=== PATIENT | female | born 1960 ===

== ENCOUNTER 2020-06-14 15:45 | Outpatient (REF) | payer OTHER, SELFPAY ==
--- NOTE | 2020-06-14 15:56 | XR_ITS ---
EXAMINATION: XR ABDOMEN KUB CLINICAL INDICATION: Renal stone COMPARISON: Previous KUB April 2020 TECHNIQUE: AP view of the abdomen. FINDINGS: Evaluation for renal stone is limited due to overlying bowel gas. No definite stone is seen. There are are high attenuation foci projecting over the mid pole of the left kidney, largest measuring 5 x 8 mm questionable for possible central left renal stone. Bowel gas pattern and bony structures are unremarkable. XR/XR KUB IMPRESSION: No definite stone seen. Evaluation for renal stone is limited due to overlying bowel gas. There are several high attenuation densities projecting over the central left kidney questionable for stones, largest measuring 5 x 8 mm.
== END 2020-06-14 15:46 | disposition home or self-care (01) ==
LOC: HO.XRAY 15:45
PROVIDERS: PCP Internal Medicine; Visit Provider Urology
DX: N20.0 Calculus of kidney (principal)
CPT/HCPCS: 74018

== ENCOUNTER → 2020-06-15 13:43 | Outpatient (BNVA) | payer OTHER, SELFPAY | PROVIDERS: PCP Internal Medicine; Referring Provider Internal Medicine; Visit Provider Urology | DX: N20.0 Calculus of kidney (principal) ==

== ENCOUNTER 2020-07-06 06:05 | Day surgery (SDC) | payer OTHER, SELFPAY ==
[2020-07-01 10:24] VITALS: BMI 44.9
--- NOTE | 2020-07-06 06:10 | XR_ITS ---
EXAMINATION: XR ABDOMEN KUB CLINICAL INDICATION: Nephrolithiasis COMPARISON: 06/14/2020 TECHNIQUE: AP view of the abdomen. FINDINGS: There is a heterogeneous 8 mm calcification overlying the lower left kidney. No definite right-sided calculi identified. Bowel gas pattern is nonobstructive. No acute osseous findings are seen. XR/XR KUB IMPRESSION: Heterogeneous 8 mm calcification overlying the lower left kidney.
[2020-07-06] MEDS: Lactated Ringers 1,000 ML 100 ML IVCONT (06:30)
[2020-07-06 06:31] VITALS: BP 127/55; PULSE 63; RESP 18; TEMP 36.1; O2SAT 97
--- NOTE | 2020-07-06 07:17 | HO.ANESPROP2 ---
FORMERLY [facility] Past Medical History Medical History Arthritis Depression HTN (hypertension) Hx of renal calculi Sleep apnea Surgical History Surgical History History of carpal tunnel release Hx of cervical polypectomy Hx of cystoscopy Social History Social History Smoking Status: Unknown if ever smoked Use of substances other than those prescribed or required for medical reasons: No Advance Directives Information Provided: No Meds Allergies Allergy/AdvReac Type Severity Reaction Status Date / Time No Known Allergies Allergy Verified 06/15/20 14:34 Home Medications Medication Instructions Recorded Confirmed Type atorvastatin 20 mg tablet 20 mg PO DAILY 06/15/20 History ciprofloxacin HCl 500 mg tablet 500 mg PO BID 06/15/20 History flu vacc [id number] 6mos up(PF) ml IM 06/15/20 History glycopyrrolate 1 mg tablet mg PO 06/15/20 History lactulose 10 gram/15 mL oral 2 ml PO BEDTIME 06/15/20 History solution losartan 50 mg tablet 50 mg PO DAILY 06/15/20 History losartan 50 mg-hydrochlorothiazide 1 tab PO DAILY 06/15/20 History 12.5 mg tablet naproxen 500 mg tablet 500 mg PO Q12H PRN 06/15/20 History omeprazole 20 mg capsule,delayed 20 mg PO DAILY 06/15/20 History release phenazopyridine 100 mg tablet 100 mg PO Q8H PRN 06/15/20 History tamsulosin 0.4 mg capsule 0.4 mg PO BEDTIME 06/15/20 History tramadol 50 mg tablet 50 mg PO Q6H PRN 06/15/20 History Exam Exam Date and Time: July 06, 2020716 Height,Weight and Vital Signs: Height 5 ft Weight 104.326 kg Last Vital Signs Temp 97.0 F 07/06/20 06:31 Pulse 63 07/06/20 06:31 Resp 18 07/06/20 06:31 BP 127/55 L 07/06/20 06:31 Pulse Ox 97 07/06/20 06:31 Airway Mallampati Class: III TM Dist: <=3cm Neck ROM: Full Loose/Missing/Broken Teeth: Yes and Upper Heart: RRR Lungs: CTA Assessment and Plan Assessment Anesthesia Assessment: Anesthesia Plan Discussed and Chart Reviewed Final Anesthetic Review NPO: Yes ASA Class: II and III Final Preanesthetic Review: Meds/Allgs Chart Reviewed, Consent Obtained/Reviewed and Anes Risks/Benef Reviewed Patient Risk: Intermediate Procedure Risk: Low Anesthetic Plan Anesthetic Plan: MAC: Disposition: Standard PACU
--- NOTE | 2020-07-06 07:48 | MHC.SHP ---
Pre-Procedural Eval Section B Chief Complaint: Calculus of Kidney Details of Present Illness: Left renal stone Relevant Family History (Specify if Yes): No Relevant Social History: None Present Medications: see Short Stay Collaborative assessment Medical History: No relevant PMH History of Previous Operations: No relevant previous surgery Allergies: Allergies Allergy/AdvReac Type Severity Reaction Status Date / Time No Known Allergies Allergy Verified 06/15/20 14:34 Review of Systems Sugical H&P ROS: Negative: Constitution, Cardiovascular, Respiratory, Neurological, Psychiatric, Hem-Onc, Allergic/Immunologic, Gastrointestinal, Genitourinary, Musculoskeletal, Integumentary, Endocrine and Eyes/Ears/Nose/Throat Exam Surgical H&P Exam: Normal: HEENT, Normal: Heart, Normal: Lungs, Normal: Extremities, Normal: Abdomen, Normal: Skin and Normal: Neurological Plan Diagnosis/Plan: Unchanged Patient has been examined and remains a candidate for the planned procedure
--- NOTE | 2020-07-06 07:51 | PM.OP ---
Brief Operative Note Date of Service: 07/06/20 Pre-op diagnosis: lefty renal stone Post-op diagnosis: same Procedure: Left ESWL Surgeon: Calin Diego MD Anesthesia: MAC Estimated blood loss (mL): 0 Pathology: none sent Condition: stable Disposition: same day
--- NOTE | 2020-07-06 07:52 | W.PM.OPN ---
Operative Note Operative Note Date of Service: 07/06/20 Narrative: PreOperative Diagnosis: Left Renal stones Post Operative Diagnosis: Left Renal stones Procedure: ESWL Surgeon: Dr Calin Diego Anesthesia: mac/sedation Indications for procedure: They understand ESWL may be a staged procedure and subsequent intervention may be required based on imaging after ESWL. They also understand there is a risk of bleeding, infection, damage to adjacent organs. Procedure: After informed consent was verified the patient was brought to the operating room and placed in a supine position. Anesthesia was performed per protocol. Safety pause time-out was performed. Imaging was in the room and laterality confirmed. ESWL was performed. The 1st 500 shocks were performed at 60 hertz. These were performed with increasing power. Once maximum power was reached the rate was increased to 120 hertz. A total of 2500 shocks were given. Fluoroscopy showed stone disintegration They tolerated procedure well and was transferred to the recovery area upon completion.
[2020-07-06 08:16] VITALS: BP 130/69; PULSE 61; RESP 16; TEMP 36.1; O2SAT 99
[2020-07-06] MEDS: Acetaminophen 325 MG TABLET 650 MG PO (08:27)
[2020-07-06] MEDS: oxyCODONE HCl Immed Release 5 MG TABLET PO (08:27)
[2020-07-06 08:31] VITALS: BP 130/73; PULSE 60; RESP 18; O2SAT 97
== END 2020-07-06 09:05 | disposition home or self-care (01) ==
PROVIDERS: Urology; PCP Internal Medicine; Visit Provider Anesthesiology
PROC: (CPT 50590; principal; 2020-07-06 07:30)
DX: N20.0 Calculus of kidney (principal); Z87.442 Personal history of urinary calculi; I10 Essential (primary) hypertension; G47.30 Sleep apnea, unspecified; F32.9 Major depressive disorder, single episode, unspecified; M19.90 Unspecified osteoarthritis, unspecified site; Z79.899 Other long term (current) drug therapy
CPT/HCPCS: 50590; 74018; J1885; J2250; J3010

== ENCOUNTER 2020-07-13 08:07 | Outpatient (REF) | payer OTHER, SELFPAY ==
--- NOTE | 2020-07-13 08:36 | US_ITS ---
EXAMINATION: US RETROPERITONEAL LIMITED (RENAL ONLY) CLINICAL INFORMATION: Calculus of kidney. COMPARISON: X-ray abdomen KUB same date and 07/06/2020. CT abdomen and pelvis 04/20/2020. TECHNIQUE: Real-time imaging of the kidneys. FINDINGS: RIGHT KIDNEY: 12.6 x 3.7 x 4.1 cm (SAG x AP x TRV). The kidney is normal in size, contour, and echogenicity. Renal cortical thickness is normal. No calculi or focal parenchymal lesions. No hydronephrosis. The small right renal stone seen by CT April 2020 is not appreciated. LEFT KIDNEY: 11.5 x 5.2 x 4.8 cm (SAG x AP x TRV). The kidney is normal in size, contour, and echogenicity. Renal cortical thickness is normal. There is a 1.1 x 0.7 x 0.8 cm echogenic density with twinkle artifact and acoustic shadowing in the lower pole suggestive of a stone. There is a smaller 2 x 3 mm echogenic density with twinkle artifact in the midpole suggestive of a stone. No focal parenchymal lesions or hydronephrosis. US/US renal BI IMPRESSION: Left renal stones.
--- NOTE | 2020-07-13 08:51 | XR_ITS ---
EXAMINATION: XR ABDOMEN KUB CLINICAL INDICATION: Renal calculus COMPARISON: July 06, 2020 TECHNIQUE: AP view of the abdomen. FINDINGS: The bowel gas pattern is normal with no evidence of ileus or obstruction. There is again noted to be a calculus overlying the lower pole of the left kidney measuring approximately 1.2 x 0.8 cm in size. No definite calcifications along the expected paths of the ureters identified. There is noted to be bilateral facet arthropathy L5-S1. There is calcific tendinitis of the left greater trochanter. XR/XR KUB IMPRESSION: 1.2 x 0.8 cm calculus overlying the lower pole of the left kidney.
== END 2020-07-13 08:08 | disposition home or self-care (01) ==
LOC: HO.US 08:07
PROVIDERS: Visit Provider Urology
DX: N20.0 Calculus of kidney (principal)
CPT/HCPCS: 74018; 76775

== ENCOUNTER → 2020-07-21 16:00 | Outpatient (BNVA) | payer OTHER, SELFPAY | PROVIDERS: PCP Internal Medicine; Visit Provider Urology | DX: Z76.89 Persons encountering health services in other specified circumstances (principal) ==

== ENCOUNTER 2020-07-29 10:19 | Outpatient (REF) | payer OTHER, SELFPAY ==
--- NOTE | 2020-07-29 | MM_ITS ---
EXAMINATION: MM SCREENING DIGITAL BREAST TOMOSYNTHESIS, BILATERAL CLINICAL INFORMATION: Screening. Asymptomatic. The lifetime risk of breast cancer based on the Tyrer-Cuzick Model is 5%. COMPARISON: Mammography: 03/07/2017 TECHNIQUE: Digital breast tomosynthesis is performed in both the craniocaudal and mediolateral oblique views along with computer-aided detection (CAD). Synthesized 2D images are generated from the tomosynthesis. Additional right MLO view is provided. FINDINGS: There are scattered areas of fibroglandular density (ACR BI-RADS breast composition Category b). There are no significant masses, abnormal calcifications, or other abnormalities. The axilla and skin contours are unremarkable. No significant changes from prior studies. MM/MM tomosynthesis screening BI IMPRESSION: No mammographic evidence of malignancy. ASSESSMENT: BI-RADS 1: Negative RECOMMENDATION: Routine annual mammography screening. This patient's information was entered into a reminder system with a target due date for their next mammogram.
== END 2020-07-29 10:20 | disposition home or self-care (01) ==
LOC: HO.MAMMO 10:19
PROVIDERS: Visit Provider Internal Medicine
DX: Z12.31 Encounter for screening mammogram for malignant neoplasm of breast (principal)
CPT/HCPCS: 77063; 77067

== ENCOUNTER 2020-11-11 09:40 | Outpatient (REF) | payer OTHER, SELFPAY ==
[2020-11-11 10:54] LABS: MANUAL DIFF FLAG NO
[2020-11-11 10:59] LABS: Basophils Percent Auto 0.5 % (0-2); Eosinophils Absolute Auto 0.1 X10*3/uL (0.0-0.4); Eosinophils Percent Auto 1.3 % (0-4); Hemoglobin 12.9 g/dl (12.0-16.0); Imm Gran Abs Auto 0.02 X10*3/uL (0.00-0.03); Imm Gran Pct Auto 0.3 % (0.0-0.4); Lymphocytes Absolute Auto 2.1 X10*3/uL (1.2-4.9); Lymphocytes Percent Auto 34.2 % (20-40); Mean Corpuscular HGB Conc 32.3 g/dl (31.0-35.0); Mean Corpuscular Volume 83.9 fL (80-98); Mean Platelet Volume 11.1 fL (9.4-12.3); Monocytes Absolute Auto 0.5 X10*3/uL (0.1-1.2); Monocytes Percent Auto 8.6 % (2-11); Neutrophils Absolute Auto 3.3 X10*3/uL (2.0-8.3); Neutrophils Percent Auto 55.1 % (45-73); Platelet Count 207 X10*3/uL (160-400); Red Blood Count 4.77 X10*6/uL (4.20-5.50); Red Cell Distribution Width 13.4 % (11.0-16.0); White Blood Count 6.1 X10*3/uL (4.8-10.8)
[2020-11-11 11:30] LABS: Alanine Aminotransferase 37 U/L (0-31); Albumin Level 4.2 g/dL (3.5-5.0); Alkaline Phosphatase 67 U/L (39-117); Anion Gap 14 (12-20); Aspartate Amino Transferase 24 U/L (5-31); Bilirubin Total 0.6 mg/dL (0.0-1.0); Blood Urea Nitrogen 13 mg/dL (9-16); Calcium 8.7 mg/dL (8.4-10.2); Carbon Dioxide 28 mmol/L (22-29); Chloride 104 mmol/L (96-108); Estimated Glomerular Filt Rate > 60; Glucose Random 96 mg/dL (60-115); Potassium 4.1 mmol/L (3.3-5.1); Sodium 142 mmol/L (135-145); Total Protein 6.5 g/dL (6.5-8.0)
[2020-11-11 11:40] LABS: Thyroid Stimulating Hormone 1.21 uIU/mL (0.32-4.0)
== END 2020-11-11 09:41 | disposition home or self-care (01) ==
LOC: HO.LAB 09:40
PROVIDERS: PCP Internal Medicine; Visit Provider Internal Medicine
DX: E66.01 Morbid (severe) obesity due to excess calories (principal); E78.00 Pure hypercholesterolemia, unspecified; I10 Essential (primary) hypertension; R61 Generalized hyperhidrosis
CPT/HCPCS: 36415; 80053; 84443; 85025

== ENCOUNTER 2020-12-19 10:19 | Outpatient (REF) | payer OTHER, SELFPAY ==
--- NOTE | ~2020-12-19 | XR_ITS ---
EXAMINATION: XR KNEE, RIGHT XR KNEE, LEFT CLINICAL INFORMATION: Osteoarthritis bilateral knees. COMPARISON: Radiographs bilateral knees 12/31/2015 TECHNIQUE: Each knee is imaged in 4 views including AP projection with weightbearing. There are total of 8 views. FINDINGS: Right: There is no fracture, dislocation, destructive process. There are osteoarthritic changes greatest medial knee joint compartment with prominent narrowing on the AP weightbearing view and mild secondary genu varus. There is no erosive change or visible chondrocalcinosis. Lateral view shows small to moderate suprapatellar effusion. There is no lateralization or tilting patella. Some benign-appearing calcifications are again noted in the prepatellar soft tissue. Hoffa's fat pad is unremarkable. The deep infrapatellar recess appears preserved. Left: There is no fracture, dislocation, destructive process. There are osteoarthritic changes medial knee joint compartment with narrowing on the AP weightbearing view of slightly lesser severity than that on the right. There is mild secondary genu varus. No erosive change or visible chondrocalcinosis. No definite suprapatellar effusion. There is no lateralization or tilting patella. Hoffa's fat pad is unremarkable. The deep infrapatellar recess appears preserved. XR/XR knee LT 4V IMPRESSION: Right: Prominent narrowing medial knee joint compartment with secondary genu varus. Small to moderate suprapatellar effusion. No erosive change or chondrocalcinosis. Left: Narrowing medial knee joint compartment of lesser severity with secondary genu varus. No definite effusion.
--- NOTE | ~2020-12-19 | XR_ITS ---
EXAMINATION: XR KNEE, RIGHT XR KNEE, LEFT CLINICAL INFORMATION: Osteoarthritis bilateral knees. COMPARISON: Radiographs bilateral knees 12/31/2015 TECHNIQUE: Each knee is imaged in 4 views including AP projection with weightbearing. There are total of 8 views. FINDINGS: Right: There is no fracture, dislocation, destructive process. There are osteoarthritic changes greatest medial knee joint compartment with prominent narrowing on the AP weightbearing view and mild secondary genu varus. There is no erosive change or visible chondrocalcinosis. Lateral view shows small to moderate suprapatellar effusion. There is no lateralization or tilting patella. Some benign-appearing calcifications are again noted in the prepatellar soft tissue. Hoffa's fat pad is unremarkable. The deep infrapatellar recess appears preserved. Left: There is no fracture, dislocation, destructive process. There are osteoarthritic changes medial knee joint compartment with narrowing on the AP weightbearing view of slightly lesser severity than that on the right. There is mild secondary genu varus. No erosive change or visible chondrocalcinosis. No definite suprapatellar effusion. There is no lateralization or tilting patella. Hoffa's fat pad is unremarkable. The deep infrapatellar recess appears preserved. XR/XR knee RT 4V IMPRESSION: Right: Prominent narrowing medial knee joint compartment with secondary genu varus. Small to moderate suprapatellar effusion. No erosive change or chondrocalcinosis. Left: Narrowing medial knee joint compartment of lesser severity with secondary genu varus. No definite effusion.
--- NOTE | ~2020-12-19 | XR_ITS ---
EXAMINATION: XR ABDOMEN KUB CLINICAL INDICATION: Renal stone COMPARISON: Previous KUB June 2020, renal ultrasound June [address] April 2020 TECHNIQUE: AP view of the abdomen. FINDINGS: Evaluation for renal stone is limited due to overlying bowel gas. No stone is appreciated. There are distended loops of bowel seen in the abdomen. There is no evidence of free air. Bony structures are unremarkable. XR/XR KUB IMPRESSION: Limited evaluation for renal stone due to overlying bowel gas. No renal stone appreciated.
[2020-12-19 13:37] LABS: Folate 14.3 ng/mL (> or = 4.0); Vitamin B12 626 pg/mL (200-900)
== END 2020-12-19 10:20 | disposition home or self-care (01) ==
LOC: HO.XRAY 10:19
PROVIDERS: PCP Internal Medicine; Visit Provider Internal Medicine
DX: M17.0 Bilateral primary osteoarthritis of knee (principal); N20.0 Calculus of kidney; G90.09 Other idiopathic peripheral autonomic neuropathy; I10 Essential (primary) hypertension; R61 Generalized hyperhidrosis
CPT/HCPCS: 36415; 73564; 74018; 82607; 82746

== ENCOUNTER → 2020-12-27 07:46 | Outpatient (BNVA) | payer OTHER, SELFPAY | PROVIDERS: PCP Internal Medicine; Visit Provider Orthopaedic Surgery | DX: M17.0 Bilateral primary osteoarthritis of knee (principal) | CPT/HCPCS: 20610; J1040 ==

== ENCOUNTER 2021-01-17 13:06 | Outpatient (REF) | payer OTHER, SELFPAY ==
[2021-01-17 14:50] LABS: C Reactive Protein 0.04 mg/dL (< or = 0.50)
[2021-01-17 15:16] LABS: Erythrocyte Sedimentation Rate 7 MM/HR (0-20)
[2021-01-18 08:27] LABS: Lyme Abs Screen <0.90 index
== END 2021-01-17 13:07 | disposition home or self-care (01) ==
LOC: HO.LAB 13:06
PROVIDERS: PCP Internal Medicine; Visit Provider Psychiatry & Neurology Neurology
DX: M35.3 Polymyalgia rheumatica (principal)
CPT/HCPCS: 36415; 82550; 85652; 86140; 86617; 86618

== ENCOUNTER → 2021-05-11 11:14 | Outpatient (BNVA) | payer OTHER, SELFPAY | PROVIDERS: PCP Internal Medicine; Visit Provider Urology ==

== ENCOUNTER 2021-05-15 10:07 | Outpatient (REF) | payer OTHER, SELFPAY ==
[2021-05-15 12:12] LABS: MANUAL DIFF FLAG NO
[2021-05-15 12:30] LABS: Basophils Percent Auto 0.4 % (0-2); Eosinophils Absolute Auto 0.1 X10*3/uL (0.0-0.4); Eosinophils Percent Auto 1.2 % (0-4); Hematocrit 39.1 % (37-47); Hemoglobin 12.6 g/dl (12.0-16.0); Imm Gran Abs Auto 0.01 X10*3/uL (0.00-0.03); Imm Gran Pct Auto 0.2 % (0.0-0.4); Lymphocytes Absolute Auto 1.6 X10*3/uL (1.2-4.9); Lymphocytes Percent Auto 30.7 % (20-40); Mean Corpuscular HGB Conc 32.2 g/dl (31.0-35.0); Mean Corpuscular Hemoglobin 27.2 pg (27.0-33.0); Mean Corpuscular Volume 84.3 fL (80-98); Mean Platelet Volume 11.2 fL (9.4-12.3); Monocytes Absolute Auto 0.5 X10*3/uL (0.1-1.2); Monocytes Percent Auto 8.8 % (2-11); Neutrophils Percent Auto 58.7 % (45-73); Platelet Count 205 X10*3/uL (160-400); Red Blood Count 4.64 X10*6/uL (4.20-5.50); Red Cell Distribution Width 12.7 % (11.0-16.0); White Blood Count 5.1 X10*3/uL (4.8-10.8)
[2021-05-15 12:43] LABS: Alanine Aminotransferase 39 U/L (0-31); Albumin Level 4.1 g/dL (3.5-5.0); Alkaline Phosphatase 62 U/L (39-117); Anion Gap 11 (12-20); Aspartate Amino Transferase 28 U/L (5-31); Bilirubin Total 0.5 mg/dL (0.0-1.0); Blood Urea Nitrogen 12 mg/dL (9-16); Carbon Dioxide 26 mmol/L (22-29); Chloride 103 mmol/L (96-108); Cholesterol 120 mg/dL; Estimated Glomerular Filt Rate > 60; Glucose Random 125 mg/dL (60-115); HDL Cholesterol 35 mg/dL; LDL Cholesterol Calculated 59 mg/dl; Potassium 3.9 mmol/L (3.3-5.1); Sodium 136 mmol/L (135-145); Total Protein 6.4 g/dL (6.5-8.0); Triglycerides 131 mg/dL
== END 2021-05-15 10:08 | disposition home or self-care (01) ==
LOC: HO.LAB 10:07
PROVIDERS: Visit Provider Internal Medicine
DX: E78.00 Pure hypercholesterolemia, unspecified (principal); I10 Essential (primary) hypertension; R05 Cough
CPT/HCPCS: 36415; 80053; 80061; 85025

== ENCOUNTER 2021-08-31 08:36 | Outpatient (REF) | payer OTHER, SELFPAY | END 2021-08-31 08:37 | disposition home or self-care (01) | LOC: HO.HOSX 08:36 | PROVIDERS: Visit Provider Orthopaedic Surgery | DX: Z13.89 Encounter for screening for other disorder (principal) ==

== ENCOUNTER → 2021-11-09 10:19 | Outpatient (BNVA) | payer OTHER, SELFPAY | PROVIDERS: PCP Internal Medicine; Visit Provider Orthopaedic Surgery | DX: M17.0 Bilateral primary osteoarthritis of knee (principal) | CPT/HCPCS: 20610; J1100 ==

== ENCOUNTER 2021-12-11 10:26 | Outpatient (REF) | payer OTHER, SELFPAY ==
--- NOTE | ~2021-12-11 | US_ITS ---
EXAMINATION: US RETROPERITONEAL LIMITED (RENAL ONLY) CLINICAL INFORMATION: Calculus of kidney. COMPARISON: X-ray abdomen KUB 12/19/2020 and 07/13/2020. Renal ultrasound 07/13/2020. CT abdomen and pelvis 04/20/2020. TECHNIQUE: Real-time imaging of the kidneys. FINDINGS: RIGHT KIDNEY: 12.4 x 4.3 x 4.9 cm (SAG x AP x TRV). The kidney is normal in size, contour, and echogenicity. Renal cortical thickness is normal. No calculi or focal parenchymal lesions. No hydronephrosis. LEFT KIDNEY: 11.5 x 4.7 x 5.3 cm (SAG x AP x TRV). The kidney is normal in size, contour, and echogenicity. Renal cortical thickness is normal. There are several echogenic foci in the left kidney questionable for tiny stones. These do not demonstrate twinkle artifact or shadowing. These measure 1 to 2 mm. The previously identified 1.1 x 0.7 x 0.8 cm stone in the lower pole is no longer seen. No focal parenchymal lesions. No hydronephrosis. US/US renal BI IMPRESSION: Question tiny left renal stones. Normal right kidney.
== END 2021-12-11 10:27 | disposition home or self-care (01) ==
LOC: HO.US 10:26
PROVIDERS: Visit Provider Urology
DX: N20.0 Calculus of kidney (principal); M54.16 Radiculopathy, lumbar region
CPT/HCPCS: 76775

== ENCOUNTER → 2021-12-19 13:10 | Outpatient (BNVA) | payer OTHER, SELFPAY | PROVIDERS: PCP Internal Medicine; Visit Provider Urology | DX: Z13.89 Encounter for screening for other disorder (principal) ==

== ENCOUNTER → 2022-01-02 09:06 | Outpatient (BNVA) | payer OTHER, SELFPAY | PROVIDERS: PCP Internal Medicine; Visit Provider Nurse Practitioner Family | DX: Z13.89 Encounter for screening for other disorder (principal) ==

== ENCOUNTER 2022-03-28 07:55 | Outpatient (REF) | payer OTHER, SELFPAY ==
--- NOTE | ~2022-03-28 | MM_ITS ---
EXAMINATION: MM SCREENING DIGITAL BREAST TOMOSYNTHESIS, BILATERAL CLINICAL INFORMATION: Screening. Asymptomatic. The lifetime risk of breast cancer based on the Tyrer-Cuzick Model is 5%. COMPARISON: Mammography: 07/29/2020, 11/23/2016 TECHNIQUE: Digital breast tomosynthesis is performed in both the craniocaudal and mediolateral oblique views along with computer-aided detection (CAD). Synthesized 2D images are generated from the tomosynthesis. Additional exaggerated left CC view is provided. FINDINGS: There are scattered areas of fibroglandular density (ACR BI-RADS breast composition Category b). There are no significant masses, abnormal calcifications, or other abnormalities. Parenchymal pattern is similar to prior studies. No developing density or architectural abnormality. No significant changes. MM/MM tomosynthesis screening BI IMPRESSION: No mammographic evidence of malignancy. ASSESSMENT: BI-RADS 1: Negative RECOMMENDATION: Routine annual mammography screening. This patient's information was entered into a reminder system with a target due date for their next mammogram.
== END 2022-03-28 07:56 | disposition home or self-care (01) ==
LOC: HO.MAMMO 07:55
PROVIDERS: PCP Internal Medicine; Visit Provider Internal Medicine
DX: Z12.31 Encounter for screening mammogram for malignant neoplasm of breast (principal)
CPT/HCPCS: 77063; 77067

== ENCOUNTER 2022-03-28 08:34 | Outpatient (REF) | payer OTHER, SELFPAY ==
--- NOTE | ~2022-03-28 | US_ITS ---
EXAMINATION: US LOWER EXTREMITY VENOUS (REFLUX EXAM), BILATERAL CLINICAL INDICATION: Chronic venous insufficiency, lower extremity pain COMPARISON: None. TECHNIQUE: Color flow triplex imaging and compression Doppler was performed to evaluate both the deep and the superficial systems bilaterally. To evaluate the superficial system, the examination was performed in the upright position. Color-flow Doppler ultrasound and compression ultrasound were utilized. In addition, maneuvers were utilized to demonstrate reflux. FINDINGS: 1. DEEP VENOUS ULTRASOUND OF THE RIGHT LOWER EXTREMITY: Common Femoral Vein: Compressible, normal respiratory variation and augmented flow. Femoral Vein: Compressible, normal color flow and augmentation. Popliteal Vein: Compressible, normal augmentation. Deep Reflux: There is no evidence of reflux in the deep system in either the common femoral vein or the popliteal vein. There is no evidence of a Gonzalez's cyst. 2. SUPERFICIAL ULTRASOUND WITH DOPPLER OF RIGHT LOWER EXTREMITY: GREAT SAPHENOUS VEIN: Saphenofemoral Junction: 0.2 cm; Reflux: 0 ms Proximal Thigh: 0.4 cm; Reflux: 0 ms Mid Thigh: 0.5 cm; Reflux: 0 ms Above Knee: 0.4 cm; Reflux: 0 ms At Knee: 0.3 cm; Reflux: 0 ms Below Knee: 0.3 cm; Reflux: 3340 ms Mid Calf: 0.2 cm; Reflux: 3012 ms Ankle: 0.3 cm; Reflux: 0 ms DUPLICATED MEDIAL GREAT SAPHENOUS VEIN: Diameter: None Imaged Reflux: NA DUPLICATED LATERAL GREAT SAPHENOUS VEIN: Diameter: None Imaged Reflux: NA SMALL SAPHENOUS VEIN: Proximal: 0.5 cm; Reflux: 0 ms Distal: 0.3 cm; Reflux: 0 ms VEIN OF GIACOMINI: None Imaged. PERFORATORS: Location: None Imaged Size: NA Reflux: NA VARICOSITIES: Location: Thigh and calf Size: Less than 3 mm Reflux: None 3. DEEP VENOUS ULTRASOUND OF THE LEFT LOWER EXTREMITY: Common Femoral Vein: Compressible, normal respiratory variation and augmented flow. Femoral Vein: Compressible, normal color flow and augmentation. Popliteal Vein: Compressible, normal augmentation. Deep Reflux: There is no evidence of reflux in the deep system in either the common femoral vein or the popliteal vein. There is no evidence of a Gonzalez's cyst. 4. SUPERFICIAL ULTRASOUND WITH DOPPLER OF LEFT LOWER EXTREMITY: GREAT SAPHENOUS VEIN: Saphenofemoral Junction: 0.7 cm; Reflux: 0 ms Proximal Thigh: 0.4 cm; Reflux: 0 ms Mid Thigh: 0.3 cm; Reflux: 0 ms Above Knee: 0.3 cm; Reflux: 0 ms At Knee: 0.3 cm; Reflux: 0 ms Below Knee: 0.3 cm; Reflux: 0 ms Mid Calf: 0.2 cm; Reflux: 0 ms Ankle: 0.3 cm; Reflux: 0 ms DUPLICATED MEDIAL GREAT SAPHENOUS VEIN: Diameter: None Imaged Reflux: NA DUPLICATED LATERAL GREAT SAPHENOUS VEIN: Diameter: None Imaged Reflux: NA SMALL SAPHENOUS VEIN: Proximal: 0.2 cm; Reflux: 0 ms Distal: 0.2 cm; Reflux: 0 ms VEIN OF GIACOMINI: None Imaged. PERFORATORS: Location: None Imaged Size: NA Reflux: NA VARICOSITIES: Location: Thigh and calf Size: Less than 3 mm Reflux: None US/US venous duplex LE BI IMPRESSION: Right: Focal segmental reflux in the right great saphenous vein within the calf as described above. Left: No significant superficial venous reflux in the left lower extremity
== END 2022-03-28 08:35 | disposition home or self-care (01) ==
LOC: HO.US 08:34
PROVIDERS: Visit Provider Nurse Practitioner Family
DX: M79.605 Pain in left leg (principal); M79.604 Pain in right leg; I89.0 Lymphedema, not elsewhere classified; G57.93 Unspecified mononeuropathy of bilateral lower limbs; M79.651 Pain in right thigh
CPT/HCPCS: 93970

== ENCOUNTER 2022-05-02 06:37 | Outpatient (REF) | payer OTHER, SELFPAY | END 2022-05-02 06:38 | disposition home or self-care (01) | LOC: HO.RADIR 06:37 | PROVIDERS: Visit Provider Internal Medicine | DX: M25.561 Pain in right knee (principal); M25.562 Pain in left knee | CPT/HCPCS: 64447 ==

== ENCOUNTER 2022-05-02 09:15 | Outpatient (REF) | payer OTHER, SELFPAY ==
[2022-05-02 09:35] LABS: MANUAL DIFF FLAG NO
[2022-05-02 10:12] LABS: Basophils Percent Auto 0.5 % (0-2); Eosinophils Absolute Auto 0.1 X10*3/uL (0.0-0.4); Eosinophils Percent Auto 1.7 % (0-4); Hemoglobin 13.4 g/dl (12.0-16.0); Imm Gran Abs Auto 0.02 X10*3/uL (0.00-0.03); Imm Gran Pct Auto 0.5 % (0.0-0.4); Lymphocytes Absolute Auto 1.6 X10*3/uL (1.2-4.9); Lymphocytes Percent Auto 39.3 % (20-40); Mean Corpuscular HGB Conc 31.9 g/dl (31.0-35.0); Mean Corpuscular Volume 84.5 fL (80.0-98.0); Mean Platelet Volume 10.5 fL (9.4-12.3); Monocytes Absolute Auto 0.4 X10*3/uL (0.1-1.2); Monocytes Percent Auto 9.4 % (2-11); Neutrophils Percent Auto 48.6 % (45-73); Platelet Count 189 X10*3/uL (160-400); Red Blood Count 4.97 X10*6/uL (4.20-5.50); Red Cell Distribution Width 12.4 % (11.0-16.0); White Blood Count 4.2 X10*3/uL (4.8-10.8)
[2022-05-02 10:32] LABS: Estimated Average Glucose 120 mg/dL; Hemoglobin A1c % 5.8 %
[2022-05-02 10:45] LABS: Alanine Aminotransferase 52 U/L (0-31); Albumin Level 4.2 g/dL (3.5-5.0); Alkaline Phosphatase 92 U/L (39-117); Anion Gap 13 (12-20); Aspartate Amino Transferase 30 U/L (5-31); Bilirubin Total 0.3 mg/dL (0.0-1.0); Blood Urea Nitrogen 15 mg/dL (9-16); Calcium 9.1 mg/dL (8.4-10.2); Carbon Dioxide 28 mmol/L (22-29); Chloride 106 mmol/L (96-108); Estimated Glomerular Filt Rate > 60; Glucose Random 107 mg/dL (60-115); Potassium 4.6 mmol/L (3.3-5.1); Sodium 142 mmol/L (135-145); Total Protein 6.6 g/dL (6.5-8.0)
[2022-05-02 10:57] LABS: Thyroid Stimulating Hormone 1.19 uIU/mL (0.32-4.0)
== END 2022-05-02 09:16 | disposition home or self-care (01) ==
LOC: HO.LAB 09:15
PROVIDERS: PCP Internal Medicine; Visit Provider Internal Medicine
DX: Z00.00 Encounter for general adult medical examination without abnormal findings (principal); I10 Essential (primary) hypertension; E78.00 Pure hypercholesterolemia, unspecified; J30.89 Other allergic rhinitis; Z86.010 Personal history of colon polyps
CPT/HCPCS: 36415; 80053; 83036; 84443; 85025

== ENCOUNTER 2022-05-30 06:21 | Outpatient (REF) | payer OTHER, SELFPAY | END 2022-05-30 06:22 | disposition home or self-care (01) | LOC: CF 06:21 | PROVIDERS: Visit Provider Internal Medicine | DX: M25.562 Pain in left knee (principal); M25.561 Pain in right knee | CPT/HCPCS: 64447 ==

== ENCOUNTER 2022-06-20 13:06 | Day surgery (SDC) | payer OTHER, SELFPAY ==
[2022-06-20 13:18] VITALS: BP 125/87; PULSE 76; RESP 18; TEMP 35.9; O2SAT 96
[2022-06-20 13:30] VITALS: BMI 43.5
--- NOTE | 2022-06-20 15:02 | PC.NURSE ---
certified court interpreter for mexican throughout assessment and in OR.
--- NOTE | 2022-06-20 15:06 | P.OP_ITS ---
Operative Note Operative Note Date of Service: 06/20/22 Narrative: Peripheral Nerve Stimulation Temporary Lead Placement, Ultrasound-Guided, Saphenous Nerve, Right ? After the risks, benefits and alternatives were discussed with the patient and informed consentwas obtained, patient was placed in the supine position and padded to foster comfort. Appropriate skin and bony landmarks were identified, and pertinent vascular structures were located. The skin overlying the needle entry site was prepped and draped in sterile fashion. Ultrasound was used to identify the femoral artery, the femoral vein and the saphenous nerve. After identifying and marking the intended target along the course of the Saphenous nerve, the skin around the planned entry point and the subcutaneous tissues were injected with local anesthetic. An introducer needle and stimulating probe were assembled, inserted and advanced along the intended course of the saphenous; nerve, taking care to maintain the proper depth of insertion as the introducer was advanced under ultrasound guidance. The introducer needle was delivered to a location in proximity to the nerve taking care not to puncture the femoral artery or the vein. Multiple stimulation parameters were used to deliver stimulation to the saphenous nerve in concert with stimulating at multiple positions around the nerve. Nerve target acquisition was confirmed noting generation of sensory and mild motor effects (paresthesia, muscle tension, etc) in the medial knee, leg and ankle; corresponding to the distribution of the saphenous nerve. Various electrical parameter combinations were tested, and the lead location was adjusted (physic ally relocated under ultrasound guidance) until the patient indicated medial knee paresthesia and tension overlapping the distribution of the patient?s typical region of pain. The stimulating probe was removed from the introducer and a percutaneous lead was guided through the needle and delivered to a location in similar proximity to the nerve. Final location was verified with electrical stimulation and documented. The introducer needle was removed, and the exposed end of the percutaneous lead was attached to an external stimulator unit. Various electrical parameter combinations were again tested until the patient indicated paresthesia and muscle tension overlapping the distribution of the patient?s typical region of pain. After confirming that lead impedance was in the normal range, the external unit was detached, the needle was removed, and the lead was anchored at the skin. The lead was threaded into the connector block and electrical continuity and desired patient response was confirmed. The connector block was attached to the external stimulator unit. The site was covered with a sterile occlusive dressing. A final ultrasound image was taken to document final placement. The patient was observed for stability of vital signs and comfort.
--- NOTE | 2022-06-20 15:06 | PM.OP ---
Brief Operative Note Date of Service: 06/20/22 Pre-op diagnosis: Chronic right knee pain Post-op diagnosis: same Procedure: Temporary saphenous nerve stimulator placement, right side Implants: [employer] temporary PNS system Surgeon: Nomi Leyva MD Anesthesia: local Was an [employer] Equipment Salesperson used for this Procedure?: No Estimated blood loss (mL): 2 Pathology: none sent Condition: stable Disposition: same day
--- NOTE | 2022-06-20 15:06 | MHC.SHP ---
Pre-Procedural Eval Section A Date of Service: 06/20/22 Changes since office visit: Yes Patient answered all questions The History & Physical has been completed within 30 days and I have reviewed it.: No Section B Chief Complaint: Pain in right and left knee Relevant Family History (Specify if Yes): No Relevant Social History: None Present Medications: see Short Stay Collaborative assessment Medical History: No relevant PMH History of Previous Operations: No relevant previous surgery Allergies: Allergies Allergy/AdvReac Type Severity Reaction Status Date / Time No Known Allergies Allergy Verified 06/01/22 09:20 Review of Systems Sugical H&P ROS: Negative: Constitution, Cardiovascular and Respiratory Exam Surgical H&P Exam: Normal: HEENT, Normal: Heart and Normal: Lungs Plan Diagnosis/Plan: Unchanged I have reviewed the history and physical and performed a pertinent physical examination on my patient. No changes have occurred unless specified.
[2022-06-20 16:15] VITALS: BP 111/66; PULSE 71; RESP 18; TEMP 36.6; O2SAT 97
[2022-06-20 16:30] VITALS: BP 124/74; PULSE 71; RESP 18; TEMP 36.6; O2SAT 97
== END 2022-06-20 16:37 | disposition home or self-care (01) ==
PROVIDERS: PCP Internal Medicine; Visit Provider Internal Medicine
PROC: (CPT 64555; principal; 2022-06-20 14:45)
DX: M25.561 Pain in right knee (principal); M17.0 Bilateral primary osteoarthritis of knee; I10 Essential (primary) hypertension; F32.A Depression, unspecified; G47.30 Sleep apnea, unspecified; Z87.442 Personal history of urinary calculi
CPT/HCPCS: 64555; C1778

== ENCOUNTER 2022-08-22 12:56 | Day surgery (SDC) | payer OTHER, SELFPAY ==
[2022-08-22 13:24] VITALS: BMI 40.6
[2022-08-22 14:27] VITALS: BP 126/72; PULSE 67; RESP 16; TEMP 36.6; O2SAT 96
[2022-08-22 14:38] VITALS: RESP 16
--- NOTE | 2022-08-23 11:43 | MHC.SHP ---
Pre-Procedural Eval Section A Date of Service: 08/22/22 The patient is an INPATIENT: No Changes since office visit: Yes Patient answered all questions The History & Physical has been completed within 30 days and I have reviewed it.: No Section B Chief Complaint: Bilateral primary osteoarthritis of knee Relevant Family History (Specify if Yes): No Relevant Social History: None Present Medications: see Short Stay Collaborative assessment Medical History: No relevant PMH History of Previous Operations: No relevant previous surgery Allergies: Allergies Allergy/AdvReac Type Severity Reaction Status Date / Time No Known Allergies Allergy Verified 06/26/22 10:49 Review of Systems Sugical H&P ROS: Negative: Constitution, Cardiovascular and Respiratory Exam Surgical H&P Exam: Normal: HEENT, Normal: Heart and Normal: Lungs Plan Diagnosis/Plan: Unchanged I have reviewed the history and physical and performed a pertinent physical examination on my patient. No changes have occurred unless specified. Time Spent With Patient Time: Total time managing care of this patient today ____ minutes.
--- NOTE | 2022-08-23 11:44 | P.BOP_ITS ---
Brief Operative Note Date of Service: 08/23/22 Pre-op diagnosis: Right knee osteoarhritis, pain in knee joint Post-op diagnosis: same Procedure: Temporary right saphenous nerve stimulator placement Implants: SPR temporary peripheral nerve stimulation system Surgeon: Nomi Leyva MD Anesthesia: local Was an [employer] Attendant used for this Procedure?: No Estimated blood loss (mL): 2 Pathology: none sent Condition: stable Disposition: same day
--- NOTE | 2022-08-23 11:46 | P.OP_ITS ---
Operative Note Operative Note Date of Service: 08/22/22 Narrative: Peripheral Nerve Stimulation Temporary Lead Placement, Ultrasound-Guided, Saphenous Nerve, Right ? After the risks, benefits and alternatives were discussed with the patient and informed consentwas obtained, patient was placed in the supine position and padded to foster comfort. Appropriate skin and bony landmarks were identified, and pertinent vascular structures were located. The skin overlying the needle entry site was prepped and draped in sterile fashion. Ultrasound was used to identify the femoral artery, the femoral vein and the saphenous nerve. After identifying and marking the intended target along the course of the Saphenous nerve, the skin around the planned entry point and the subcutaneous tissues were injected with local anesthetic. An introducer needle and stimulating probe were assembled, inserted and advanced along the intended course of the saphenous; nerve, taking care to maintain the proper depth of insertion as the introducer was advanced under ultrasound guidance. The introducer needle was delivered to a location in proximity to the nerve taking care not to puncture the femoral artery or the vein. Multiple stimulation parameters were used to deliver stimulation to the saphenous nerve in concert with stimulating at multiple positions around the nerve. Nerve target acquisition was confirmed noting generation of sensory and mild motor effects (paresthesia, muscle tension, etc) in the medial knee, leg and ankle; corresponding to the distribution of the saphenous nerve. Various electrical parameter combinations were tested, and the lead location was adjusted (physic ally relocated under ultrasound guidance) until the patient indicated medial knee paresthesia and tension overlapping the distribution of the patient?s typical region of pain. The stimulating probe was removed from the introducer and a percutaneous lead was guided through the needle and delivered to a location in similar proximity to the nerve. Final location was verified with electrical stimulation and documented. The introducer needle was removed, and the exposed end of the percutaneous lead was attached to an external stimulator unit. Various electrical parameter combinations were again tested until the patient indicated paresthesia and muscle tension overlapping the distribution of the patient?s typical region of pain. After confirming that lead impedance was in the normal range, the external unit was detached, the needle was removed, and the lead was anchored at the skin. The lead was threaded into the connector block and electrical continuity and desired patient response was confirmed. The connector block was attached to the external stimulator unit. The site was covered with a sterile occlusive dressing. A final ultrasound image was taken to document final placement. The patient was observed for stability of vital signs and comfort.
== END 2022-08-22 14:46 | disposition home or self-care (01) ==
PROVIDERS: PCP Internal Medicine; Visit Provider Internal Medicine
PROC: (CPT 64555; principal; 2022-08-22 13:20)
DX: M25.561 Pain in right knee (principal); M17.11 Unilateral primary osteoarthritis, right knee; G57.93 Unspecified mononeuropathy of bilateral lower limbs; I89.0 Lymphedema, not elsewhere classified; I10 Essential (primary) hypertension; G47.30 Sleep apnea, unspecified; F32.A Depression, unspecified
CPT/HCPCS: 64555; C1778

== ENCOUNTER → 2022-08-30 10:02 | Outpatient (BNVA) | payer OTHER, SELFPAY | PROVIDERS: PCP Internal Medicine; Visit Provider Nurse Practitioner Family | DX: M17.0 Bilateral primary osteoarthritis of knee (principal) ==

== ENCOUNTER → 2022-09-04 09:27 | Outpatient (BNVA) | payer OTHER, SELFPAY | PROVIDERS: PCP Internal Medicine; Visit Provider Surgery Vascular Surgery | DX: I87.2 Venous insufficiency (chronic) (peripheral) (principal) ==

== ENCOUNTER → 2022-09-11 09:41 | Outpatient (BNVA) | payer OTHER, SELFPAY | PROVIDERS: PCP Internal Medicine; Visit Provider Nurse Practitioner Family | DX: Z79.899 Other long term (current) drug therapy (principal) ==

== ENCOUNTER → 2022-09-18 09:54 | Outpatient (BNVA) | payer OTHER, SELFPAY | PROVIDERS: PCP Internal Medicine; Visit Provider Nurse Practitioner Family | DX: Z79.899 Other long term (current) drug therapy (principal) ==

== ENCOUNTER → 2022-09-25 08:44 | Outpatient (BNVA) | payer OTHER, SELFPAY | PROVIDERS: PCP Internal Medicine; Visit Provider Anesthesiology | DX: Z13.89 Encounter for screening for other disorder (principal) ==

== ENCOUNTER → 2022-10-02 09:26 | Outpatient (BNVA) | payer OTHER, SELFPAY | PROVIDERS: PCP Internal Medicine; Visit Provider Nurse Practitioner Family | DX: Z13.89 Encounter for screening for other disorder (principal) ==

== ENCOUNTER → 2022-10-09 08:48 | Outpatient (BNVA) | payer OTHER, SELFPAY | PROVIDERS: PCP Internal Medicine; Visit Provider Anesthesiology | DX: Z13.89 Encounter for screening for other disorder (principal) ==

== ENCOUNTER → 2022-10-23 08:42 | Outpatient (BNVA) | payer OTHER, SELFPAY | PROVIDERS: PCP Internal Medicine; Visit Provider Anesthesiology | DX: Z13.89 Encounter for screening for other disorder (principal) ==

== ENCOUNTER 2022-10-23 09:11 | Outpatient (REF) | payer OTHER, SELFPAY ==
[2022-10-23 10:50] LABS: MANUAL DIFF FLAG NO
[2022-10-23 10:58] LABS: Basophils Percent Auto 0.6 % (0-2); Eosinophils Percent Auto 0.8 % (0-4); Hematocrit 42.6 % (37.0-47.0); Hemoglobin 13.7 g/dl (12.0-16.0); Imm Gran Abs Auto 0.01 X10*3/uL (0.00-0.03); Imm Gran Pct Auto 0.2 % (0.0-0.4); Lymphocytes Percent Auto 38.5 % (20-40); Mean Corpuscular HGB Conc 32.2 g/dl (31.0-35.0); Mean Corpuscular Hemoglobin 27.2 pg (27.0-33.0); Mean Corpuscular Volume 84.7 fL (80.0-98.0); Mean Platelet Volume 10.5 fL (9.4-12.3); Monocytes Absolute Auto 0.4 X10*3/uL (0.1-1.2); Monocytes Percent Auto 7.1 % (2-11); Neutrophils Absolute Auto 2.7 x10*3/uL (2.0-8.3); Neutrophils Percent Auto 52.8 % (45-73); Platelet Count 210 X10*3/uL (160-400); Red Blood Count 5.03 X10*6/uL (4.20-5.50); Red Cell Distribution Width 13.3 % (11.0-16.0); White Blood Count 5.1 X10*3/uL (4.8-10.8)
[2022-10-23 11:05] LABS: Alanine Aminotransferase 44 U/L (0-31); Albumin Level 4.4 g/dL (3.5-5.0); Alkaline Phosphatase 83 U/L (39-117); Anion Gap 12 (12-20); Aspartate Amino Transferase 27 U/L (5-31); Bilirubin Total 0.6 mg/dL (0.0-1.0); Blood Urea Nitrogen 16 mg/dL (9-16); Calcium 9.2 mg/dL (8.4-10.2); Carbon Dioxide 28 mmol/L (22-29); Chloride 105 mmol/L (96-108); Cholesterol 165 mg/dL; Estimated Glomerular Filt Rate > 60; Glucose Fasting 100 mg/dL (60-99); HDL Cholesterol 44 mg/dL; LDL Cholesterol Calculated 91 mg/dl; Potassium 4.4 mmol/L (3.3-5.1); Sodium 141 mmol/L (135-145); Total Protein 6.8 g/dL (6.5-8.0); Triglycerides 152 mg/dL
== END 2022-10-23 09:12 | disposition home or self-care (01) ==
LOC: HO.10HDL 09:11
PROVIDERS: Visit Provider Internal Medicine
DX: B35.1 Tinea unguium (principal); E78.00 Pure hypercholesterolemia, unspecified; I10 Essential (primary) hypertension
CPT/HCPCS: 36415; 80053; 80061; 85025

== ENCOUNTER → 2022-10-30 10:46 | Outpatient (BNVA) | payer OTHER, SELFPAY | PROVIDERS: PCP Internal Medicine; Visit Provider Nurse Practitioner Family | DX: Z13.89 Encounter for screening for other disorder (principal) ==

== ENCOUNTER 2022-12-10 08:46 | Outpatient (REF) | payer OTHER, SELFPAY ==
--- NOTE | ~2022-12-10 | US_ITS ---
EXAMINATION: US RETROPERITONEAL LIMITED (RENAL ONLY) CLINICAL INFORMATION: Calculus of kidney. COMPARISON: Bilateral renal ultrasound dated 12/11/2021 and 07/13/2020. KUBs dated 12/19/2020 and 07/13/2020. TECHNIQUE: Real-time imaging of the kidneys. FINDINGS: RIGHT KIDNEY: 12.2 x 5.3 x 5.8 cm (SAG x AP x TRV). The kidney is normal in size, contour, and echogenicity. Renal cortical thickness is normal. No focal parenchymal lesions or hydronephrosis. Nonobstructive 0.5 cm calculus in the upper pole. Scattered hyperechoic foci, suggesting vascular calcifications versus punctate calculi. LEFT KIDNEY: 11.3 x 4.5 x 6.1 cm (SAG x AP x TRV). The kidney is normal in size, contour, and echogenicity. Renal cortical thickness is normal. No calculi or focal parenchymal lesions. No hydronephrosis. Is scattered hyperechoic foci suggesting vascular calcifications versus punctate calculi. US/US renal BI IMPRESSION: 1. Nonobstructive 0.5 cm calculus in the upper pole of the right kidney. 2. Scattered hyperechoic foci in both kidneys suggesting vascular calcifications versus punctate calculi.
== END 2022-12-10 08:47 | disposition home or self-care (01) ==
LOC: HO.US 08:46
PROVIDERS: PCP Internal Medicine; Visit Provider Urology
DX: N20.0 Calculus of kidney (principal)
CPT/HCPCS: 76775

== ENCOUNTER 2023-04-17 09:45 | Outpatient (REF) | payer OTHER, SELFPAY | END 2023-04-17 09:46 | disposition home or self-care (01) | LOC: HO.MAMMO 09:45 | PROVIDERS: PCP Internal Medicine; Visit Provider Internal Medicine | DX: Z12.31 Encounter for screening mammogram for malignant neoplasm of breast (principal) | CPT/HCPCS: 77063; 77067 ==

== ENCOUNTER → 2023-04-17 10:15 | Outpatient (BNV) | payer OTHER, SELFPAY | PROVIDERS: PCP Internal Medicine; Visit Provider Radiology Diagnostic Radiology | DX: Z12.31 Encounter for screening mammogram for malignant neoplasm of breast (principal) | CPT/HCPCS: 77063; 77067 ==

== ENCOUNTER 2023-09-24 07:57 | Outpatient (REF) | payer OTHER, SELFPAY ==
[2023-09-24 08:20] LABS: MANUAL DIFF FLAG NO
[2023-09-24 08:38] LABS: Basophils Percent Auto 0.4 % (0-2); Eosinophils Absolute Auto 0.1 X10*3/uL (0.0-0.4); Eosinophils Percent Auto 1.4 % (0-4); Hematocrit 39.8 % (37.0-47.0); Imm Gran Abs Auto 0.01 X10*3/uL (0.00-0.03); Imm Gran Pct Auto 0.2 % (0.0-0.4); Lymphocytes Absolute Auto 1.9 X10*3/uL (1.2-4.9); Mean Corpuscular HGB Conc 32.7 g/dl (31.0-35.0); Mean Corpuscular Volume 85.8 fL (80.0-98.0); Mean Platelet Volume 10.1 fL (9.4-12.3); Monocytes Absolute Auto 0.4 X10*3/uL (0.1-1.2); Neutrophils Absolute Auto 2.6 x10*3/uL (2.0-8.3); Platelet Count 223 X10*3/uL (160-400); Red Blood Count 4.64 X10*6/uL (4.20-5.50); Red Cell Distribution Width 13.2 % (11.0-16.0)
[2023-09-24 09:15] LABS: Alanine Aminotransferase 25 U/L (0-31); Albumin Level 4.1 g/dL (3.5-5.0); Alkaline Phosphatase 73 U/L (39-117); Anion Gap 11 (12-20); Aspartate Amino Transferase 21 U/L (5-31); Bilirubin Total 0.4 mg/dL (0.0-1.0); Blood Urea Nitrogen 17 mg/dL (9-16); Calcium 9.1 mg/dL (8.4-10.2); Carbon Dioxide 27 mmol/L (22-29); Chloride 105 mmol/L (96-108); Cholesterol 146 mg/dL (<200); Estimated Glomerular Filt Rate > 60; Glucose Random 93 mg/dL (60-115); HDL Cholesterol 48 mg/dL (>40); LDL Cholesterol Calculated 80 mg/dL (<100); Potassium 4.1 mmol/L (3.3-5.1); Sodium 139 mmol/L (135-145); Total Protein 6.7 g/dL (6.5-8.0); Triglycerides 93 mg/dL (<150)
== END 2023-09-24 07:58 | disposition home or self-care (01) ==
LOC: HO.LAB 07:57
PROVIDERS: PCP Internal Medicine; Visit Provider Internal Medicine
DX: I10 Essential (primary) hypertension (principal); L84 Corns and callosities; R05.9 Cough, unspecified
CPT/HCPCS: 36415; 80053; 80061; 85025

== ENCOUNTER 2024-04-22 09:02 | Outpatient (REF) | payer OTHER, SELFPAY ==
--- NOTE | ~2024-04-22 | MM_ITS ---
EXAMINATION: MM SCREENING DIGITAL BREAST TOMOSYNTHESIS, BILATERAL CLINICAL INFORMATION: Screening. Asymptomatic. COMPARISON: Mammography: Comparison is made with available priors TECHNIQUE: Digital breast mammography with tomosynthesis is performed in both the craniocaudal and mediolateral oblique views along with computer-aided detection (CAD). FINDINGS: There are scattered areas of fibroglandular density (ACR BI-RADS breast composition Category b). There are no significant masses, abnormal calcifications, or other abnormalities. MM/MM tomosynthesis screening BI IMPRESSION: No mammographic evidence of malignancy. ASSESSMENT: BI-RADS BI-RADS 1 - Negative RECOMMENDATION: Routine annual mammography screening. 1 year F/U This examination should not preclude the clinical evaluation of a suspicious palpable abnormality. This patient's information was entered into a reminder system with a target due date for their next mammogram. Electronically signed by: Sabine Ocasio DO 05/10/2024 09:32 AM EDT
== END 2024-04-22 09:03 | disposition home or self-care (01) ==
LOC: HO.MAMMO 09:02
PROVIDERS: PCP Internal Medicine; Visit Provider Internal Medicine
DX: Z12.31 Encounter for screening mammogram for malignant neoplasm of breast (principal)
CPT/HCPCS: 77063; 77067

== ENCOUNTER → 2024-04-22 09:45 | Outpatient (BNV) | payer OTHER, SELFPAY | PROVIDERS: PCP Internal Medicine; Visit Provider Internal Medicine | DX: Z12.31 Encounter for screening mammogram for malignant neoplasm of breast (principal) | CPT/HCPCS: 77063; 77067 ==

== ENCOUNTER 2024-05-01 08:14 | Outpatient (AMB) | payer OTHER, SELFPAY ==
--- NOTE | 2024-05-01 08:27 | A.OFFVIS_ITS ---
Vital Signs 05/01/24 08:34 Height 5 ft 2 in Weight 201 lb 2 oz BMI 36.8 BP 113/62 Blood Pressure Location Lt brachial Position Sitting Pulse 86 Pulse Source Pulse Oximeter Pulse Oximetry (%) 98 Oxygen Delivery Method Room Air Intake Visit Reasons: Knee pain coming back Intake Note: Pain today 05/28 [employer] Required: Yes [employer] Teacher Language: Icelandic Accompanied by: Self / Same As Patient Allergies No Known Allergies Allergy (Verified 05/01/24 08:35) Medication List - Last Reconciled 05/01/24 by RADHA Fortune amitriptyline 25 mg PO BEDTIME atorvastatin 20 mg PO DAILY glycopyrrolate mg PO losartan-hydrochlorothiazide 100-12.5 mg 1 tab PO DAILY losartan-hydrochlorothiazide 50-12.5 mg 1 tab PO DAILY naltrexone-bupropion 8-90 mg 2 tabs PO BID HPI Comments Details: Patient presents today for follow-up for chronic right knee pain due to severe medial compartment OA. She underwent Sprint PNS trial last year and reports her pain returned about 5-6 months ago. Denies any recent trauma, injury or falls. Patient reports she recently visited her country [facility] and received gel injections there about 5 months ago with partial pain relief. Patient reports she was told her right knee was bone on bone and she is interested to discuss surgical options. Reports pain 1010. She is encouraged to follow office orthopedic provider. Denies any fever or chills, infection, weakness, radiating back pain, hip pain, bladder or bowel dysfunction or saddle anesthesia. PRIOR: Patient presents today for right saphenous nerve Sprint PNS removal. Patient reports ongoing 80-90% right knee pain relief with continuos paresthesia at 79- 83 with increased mobility overall. Patient reports improved functioning with daily activities, better sleep, better social interactions, improved sleep and better quality of life. Patient reports she will hold off on proceeding with left knee Sprint PNS as her left knee has not been bothersome at this time. The dressing was removed today. Lead insertion site looks clean, dry, intact, no pathological discharge, no bleeding, no erythema, no tenderness. Area was cleansed with Chloraprep. Lead pulled with tip intact and the area was cleansed again with Chloraprep, applied Bacitracin and covered it with gauze and tegaderm. Patient reports she is able to increase her physical activity level and trying to loose weight. She is able to walk longer and tolerate climbing stairs. Past Procedures: 10/30/22: Right saphenous nerve Sprint PNS lead removal 08/22/22: Repeat Right saphenous nerve PNS with [id number]% ongoing pain relief 06/20/22: Right saphenous nerve PNS with Sprint-70% until 06/26/22 05/30/22: Left saphenous nerve block at the adductor canal 100% pain relief for 2 days 05/02/22: Right saphenous nerve block at the adductor canal with li [id number]% pain relief for 24 hours [facility] Medical History Morbid obesity with BMI of 40.0-44.9, adult Primary osteoarthritis of knees, bilateral Arthritis Hx of renal calculi Depression Sleep apnea HTN (hypertension) Surgical History Hx of cystoscopy Hx of cervical polypectomy History of carpal tunnel release Social History Alcohol intake: never Patient Tobacco Use Status: Never used Tobacco Review of Systems Const All systems reviewed & are unremarkable except as noted in HPI and below Physical Exam Vital Signs: Last Vital Signs Pulse 86 05/01/24 08:34 BP 113/62 05/01/24 08:34 Pulse Ox 98 05/01/24 08:34 Oxygen Delivery Method Room Air 05/01/24 08:34 BMI result Body Mass Index 36.8 General: Appears afebrile. Alert and oriented. Mood and affect appropriate. Follows and participates in conversation appropriately. Respiratory effort is unlabored. No cough. No nasal discharge. Able to transition from sit to stand unassisted. Ambulates with bilaterally normal heel strike and toe off. Extrem General: Yes capillary refill normal, Yes no clubbing, cyanosis or edema and Yes no calf tenderness Right lower extremity: knee (Limited ROM due to pain.) Details: normal to inspection, tenderness Location: of the patella, of the medial joint line and of the lateral joint line and crepitus; no ecchymosis, no deformity and no unusual warmth Results Reviewed Results Reviewed: XR KNEE, RIGHT, XR KNEE, LEFT 12/19/20 FINDINGS: Right: There is no fracture, dislocation, destructive process. There are osteoarthritic changes greatest medial knee joint compartment with prominent narrowing on the AP weightbearing view and mild secondary genu varus. There is no erosive change or visible chondrocalcinosis. Lateral view shows small to moderate suprapatellar effusion. There is no lateralization or tilting patella. Some benign-appearing calcifications are again noted in the prepatellar soft tissue. Hoffa's fat pad is unremarkable. The deep infrapatellar recess appears preserved. Left: There is no fracture, dislocation, destructive process. There are osteoarthritic changes medial knee joint compartment with narrowing on the AP weightbearing view of slightly lesser severity than that on the right. There is mild secondary genu varus. No erosive change or visible chondrocalcinosis. No definite suprapatellar effusion. There is no lateralization or tilting patella. Hoffa's fat pad is unremarkable. The deep infrapatellar recess appears preserved. IMPRESSION: Right: Prominent narrowing medial knee joint compartment with secondary genu varus. Small to moderate suprapatellar effusion. No erosive change or chondrocalcinosis. Left: Narrowing medial knee joint compartment of lesser severity with secondary genu varus. No definite effusion. Assessment & Plan Assessment & Plan (1) Right knee pain: Code(s): M25.561 - Pain in right knee Category: Medical (2) Primary osteoarthritis of knees, bilateral: Code(s): M17.0 - Bilateral primary osteoarthritis of knee Category: Medical Plan Patient is over 1-1/2 year status post right saphenous Sprint PNS trial with ret urn of symptoms about 6 months ago. Right knee pain has been resistant to conservative treatments, including recent gel injection in uador. Orthopedic referral placed today to discuss surgical options. Patient reports she has been losing weight to optimize her BMI. Script provided for Celebrex and lidocaine patches. Side effects and precautions were discussed with patient. All questions and concerns have been answered and patient agreed with the treatment plan. Follow-up as needed. Orders: Orders XR knee RT 3V Today M25.561 - Pain in right knee Referrals Orthopedics Referral M17.0 - Bilateral primary osteoarthritis of knee, M25.561 - Pain in right knee Medications: New celecoxib Take it with food and full glass of water 200 mg PO BID PRN 60 caps 0RF pain 30 days M17.0 - Bilateral primary osteoarthritis of knee, M25.561 - Pain in right knee lidocaine 5% 2 patches topical DAILY 60 ea 1RF pain 30 days M17.0 - Bilateral primary osteoarthritis of knee, M25.561 - Pain in right knee, M25.562 - Pain in left knee Coding Level of Care Code Est Pt Level 4 (61140) Complex EM visit Add On G2211 Diagnoses Right knee pain M25.561 Primary osteoarthritis of knees, bilateral M17.0
[2024-05-01 08:34] VITALS: BP 113/62; PULSE 86; O2SAT 98; BMI 36.8
== END 2024-05-01 09:05 | disposition home or self-care (01) ==
PROVIDERS: PCP Internal Medicine; Visit Provider Nurse Practitioner Family
DX: M25.561 Pain in right knee (principal); M17.0 Bilateral primary osteoarthritis of knee
CPT/HCPCS: 99214

== ENCOUNTER 2024-05-01 08:14 | Outpatient (REF) | payer OTHER, SELFPAY ==
--- NOTE | ~2024-05-01 | XR_ITS ---
EXAMINATION: XR KNEE, RIGHT CLINICAL INFORMATION: There are 3 views of the right knee COMPARISON: Right knee x-ray December 2020 TECHNIQUE: There are 3 views of the right knee. FINDINGS: Medial compartment there is mild genu varus. There is severe joint space narrowing in the medial compartment resulting in [id number] appearance. There marginal osteophytes about the lateral compartment. There are marginal osteophytes about the patellofemoral compartment. There is no effusion. Some calcification anterior to the patella perhaps related to old soft tissue trauma. XR/XR knee RT 3V IMPRESSION: Advanced osteoarthritis of the right knee with severe joint space narrowing in the medial compartment. Electronically signed by: Taco Pace MD 05/07/2024 09:55 PM EDT
== END 2024-05-01 08:15 | disposition home or self-care (01) ==
LOC: HO.XRAY 08:14
PROVIDERS: PCP Internal Medicine; Visit Provider Nurse Practitioner Family
DX: M17.0 Bilateral primary osteoarthritis of knee (principal)
CPT/HCPCS: 73562

== ENCOUNTER 2024-05-11 12:12 | Outpatient (AMB) | payer OTHER, SELFPAY ==
--- NOTE | 2024-05-11 12:27 | A.OFFVIS_ITS ---
Vital Signs 05/11/24 12:29 Height 5 ft 2 in Weight 201 lb BMI 36.8 Intake Visit Reasons: OV Rt knee pain Intake Note: Sylvia is a 64 year old female who presents today for a follow up of her right knee OA. Patient reports that she has history of cortisone and gel injections with minimal relief. She was also treated with Pain management, who tried PNS stimulator, but have since referred patient to discuss surgical intervention of the right knee. Allergies No Known Allergies Allergy (Verified 05/01/24 08:35) HPI HPI OV Rt knee pain: Details: Sylvia is a 64 year old female who presents today for a follow up of her right knee OA. Patient reports that she has history of cortisone and gel injections with minimal relief. She was also treated with Pain management, who tried PNS stimulator, but have since referred patient to discuss surgical intervention of the right knee. She is active and healthy and feels she can not walk comfortably for more than a few minutes. She has to frequently stop. She feels she has tried everything but her pain is not allowing her to move on with her life. She has been taking NSAIDs for over a year. She has had gel and cortisone injections and even tried a pain stimulator. REPLACED BY [facility] Medical History Morbid obesity with BMI of 40.0-44.9, adult Primary osteoarthritis of knees, bilateral Arthritis Hx of renal calculi Depression Sleep apnea HTN (hypertension) Surgical History Hx of cystoscopy Hx of cervical polypectomy History of carpal tunnel release Social History Alcohol intake: never Patient Tobacco Use Status: Never used Tobacco Physical Exam Vital Signs: BMI result Body Mass Index 36.8 Extrem Other: 5-125 degrees of motion right knee Tenderness to palpation medial joint line. fixed varus malalignment Results Reviewed Results Reviewed: I personally reviewed relevant radiographs. Severe varus pattern osteoarthritis involving the medial compartment most predominantly. Assessment & Plan Assessment & Plan (1) Primary osteoarthritis of knees, bilateral: Code(s): M17.0 - Bilateral primary osteoarthritis of knee Category: Medical Plan: Primary osteoarthritis right knee. I had a long discussion with her regarding treatment options and she has failed conservative management. She is a good candidate for arthroplasty. She understands the procedure and is prepared for the responsibilities associated with it. I explained the procedure in detail. I discussed the risks benefits and alternatives including but not limited to the risk of pain, infection, stiffness, need for further surgery as well as potential medical complications such as blood clots, pulmonary embolism and cardiac complications. She expressed understanding. I introduced her to our nurse navigator and we will proceed forward preoperative clearance. Coding Level of Care Code Est Pt Level 4 (41185) Diagnoses Primary osteoarthritis of knees, bilateral M17.0
[2024-05-11 12:29] VITALS: BMI 36.8
== END 2024-05-11 13:22 | disposition home or self-care (01) ==
PROVIDERS: PCP Internal Medicine; Visit Provider Orthopaedic Surgery
DX: M17.0 Bilateral primary osteoarthritis of knee (principal)
CPT/HCPCS: 99214

== ENCOUNTER → 2024-05-11 12:12 | Outpatient (BNVA) | payer OTHER, SELFPAY | PROVIDERS: PCP Internal Medicine; Visit Provider Orthopaedic Surgery ==

== ENCOUNTER → 2024-08-03 10:23 | Outpatient (BNVA) | payer OTHER, SELFPAY | PROVIDERS: PCP Internal Medicine | DX: Z01.818 Encounter for other preprocedural examination (principal) ==

== ENCOUNTER → 2024-08-20 13:24 | Outpatient (BNV) | payer OTHER, SELFPAY | PROVIDERS: PCP Internal Medicine; Visit Provider Internal Medicine Cardiovascular Disease | DX: Z01.810 Encounter for preprocedural cardiovascular examination (principal) | CPT/HCPCS: 93010 ==

== ENCOUNTER 2024-09-03 08:53 | Outpatient (AMB) | payer OTHER, SELFPAY ==
--- NOTE | 2024-09-03 08:56 | MHC.OFFVIS ---
Vital Signs 09/03/24 09:02 Height 5 ft 2 in Weight 201 lb BMI 36.8 Intake Visit Reasons: Pre-Op: R TKA w/NE 09/08/24 Intake Note: Sylvia is a 64 year old female who presents today for a preoperative RT TKA on 09/08/24 NE. Pain management agreement reviewed and signed. Review Nurse Required: Yes Review Nurse Services: Review Nurse Present Review Nurse Name: Obie ID#[id number] Allergies gabapentin Allergy (Verified 09/03/24 09:12) Rash lisinopril Allergy (Verified 09/03/24 09:12) Cough Medication List - Last Reconciled 09/03/24 by Shania Linder PA-C atorvastatin 20 mg PO DAILY celecoxib mg PO BID lidocaine 5% 2 patches topical DAILY PRN losartan-hydrochlorothiazide 100-12.5 mg 1 tab PO DAILY naproxen sodium (Aleve) 440 mg PO BEDTIME PRN sertraline 50 mg PO 3XW walker Folding Front wheeled walker duration 99 days HPI Comments Details: Ms Tamayo presents to the office today for preop visit. She is scheduled for right total knee arthroplasty with Dr. Brown. She continues to have ongoing pain and difficulty with ambulation in the right knee, which is affecting her quality of life; therefore, she has elected to move forward with surgery. [facility] Medical History (Updated 08/20/24 @ 12:26 by Luisana Barnes RN) Anemia Constipation Migraine Numbness Elevated cholesterol Carpal tunnel syndrome Dyslipidemia Elevated liver enzymes Morbid obesity with BMI of 40.0-44.9, adult Primary osteoarthritis of knees, bilateral Arthritis Hx of renal calculi Depression Sleep apnea HTN (hypertension) Surgical History H/O colonoscopy H/O liposuction of abdomen Hx of cystoscopy Hx of cervical polypectomy History of carpal tunnel release Social History Are you a primary child care education coordinator to a significant other at home: No Do you presently have visiting nurse or other home services: No Alcohol intake: never Patient Tobacco Use Status: Never used Tobacco Review of Systems Const All systems reviewed & are unremarkable except as noted in HPI and below Physical Exam Vital Signs: BMI result Body Mass Index 36.8 Const General: cooperative, healthy appearing, comfortable, no acute distress, well developed and alert Orientation/consciousness: patient oriented x3 HEENT Head: Yes normal to inspection, Yes normocephalic and Yes atraumatic Eyes General: appearance normal, both eyes and all related structures Neck Neck: Yes normal visual inspection and Yes no lymphadenopathy Resp Effort & Inspection: normal respiratory effort and able to speak in complete sentences Cardio Rate: regular rate Peripheral pulses: Peripheral pulses 2+ throughout GI Inspection: Yes normal to inspection Palpation (GI): Soft to palpation Skin General skin exam: no rashes or lesions noted Neuro General: patient oriented x3 Extrem Other: Right knee skin intact, no open wounds or abrasions. 5-125 degrees of motion right knee Tenderness to palpation medial joint line. fixed varus malalignment Psych Appearance: grossly normal Mental Status: mental status grossly normal Results Reviewed Results Reviewed: Xrays were obtained in the office today and personally reviewed by me of the right knee for surgical planning Assessment & Plan Assessment & Plan (1) Osteoarthritis of right knee: Code(s): M17.11 - Unilateral primary osteoarthritis, right knee Category: Medical Plan: I discussed in detail the procedure and what to expect pre and post operatively. We discussed the risks, benefits and alternatives to the surgery as well as the rehabilitation course. The risks; which include, but are not limited to infection, bleeding, nerve injury, ongoing pain, swelling, and stiffness, perioperative risk of injury to bones and soft tissues, and blood clots. I?ve answered all questions and with their understanding they have consented to move forward with Right total knee arthroplasty with Dr. Brown -ASA post op -PT at [facility] core-order placed -Home with VNA Orders: Orders XR knee RT 3V Today M17.11 - Unilateral primary osteoarthritis, right knee XR knee LT 1V Today M25.562 - Pain in left knee PT Evaluation and Treatment Today Z96.651 - Presence of right artificial knee joint Coding Level of Care Code Est Pt Level 3 (39245) Complex EM visit Add On G2211 Diagnoses Osteoarthritis of right knee M17.11
[2024-09-03 09:02] VITALS: BMI 36.8
== END 2024-09-03 09:43 | disposition home or self-care (01) ==
PROVIDERS: PCP Internal Medicine; Visit Provider Physician Assistant
DX: M17.11 Unilateral primary osteoarthritis, right knee (principal)
CPT/HCPCS: 99213

== ENCOUNTER 2024-09-03 11:27 | Outpatient (REF) | payer OTHER, SELFPAY ==
--- NOTE | ~2024-09-03 | XR_ITS ---
EXAMINATION: XR KNEE, LEFT CLINICAL INFORMATION: M25.562 - Pain in left knee COMPARISON: X-ray dated January 15, 2021. TECHNIQUE: Single AP view of the both knees.. FINDINGS: Joint space narrowing involving the medial compartments of the knees. No acute cortical disruption or gross malalignment. No lytic or blastic lesions. XR/XR knee LT 1V IMPRESSION: Medial compartment osteoarthrosis, both kidneys. Electronically signed by: Jones Garcia MD 09/04/2024 10:11 AM [facility]
--- NOTE | ~2024-09-03 | XR_ITS ---
EXAMINATION: XR KNEE, RIGHT CLINICAL INFORMATION: M17.11 - Unilateral primary osteoarthritis, right knee COMPARISON: May 01, 2024. TECHNIQUE: Two views of the right knee. FINDINGS: Joint space narrowing involving the medial compartment. Posterior marginal osteophyte formation in the superior and inferior patella. Suprapatellar bursa joint effusion, large volume. Well-corticated calcifications in the prepatellar soft tissues. No acute cortical disruption or malalignment. XR/XR knee RT 3V IMPRESSION: Medial compartment osteoarthrosis. Large volume effusion, suprapatellar bursa. Probable prior trauma, prepatellar soft tissues. Electronically signed by: Jones Garcia MD 09/04/2024 10:12 AM [facility]
== END 2024-09-03 11:28 | disposition home or self-care (01) ==
LOC: HO.HOSX 11:27
PROVIDERS: Visit Provider Physician Assistant
DX: M17.11 Unilateral primary osteoarthritis, right knee (principal); M25.562 Pain in left knee
CPT/HCPCS: 73560; 73562

== ENCOUNTER 2024-09-08 07:17 | Day surgery (SDC) | payer OTHER, SELFPAY ==
--- NOTE | 2024-08-20 | ECG_ITS ---
Test Reason : pre op Blood Pressure : / mmHG Vent. Rate : 081 BPM Atrial Rate : 081 BPM P-R Int : 144 ms QRS Dur : 082 ms QT Int : 408 ms P-R-T Axes : 053 033 035 degrees QTc Int : 473 ms Normal sinus rhythm Normal ECG No previous ECGs available Referred By: Agatha Barahona Electronically Signed By:ARIANE MEJIA MD
[2024-08-20 12:43] VITALS: BP 120/74; PULSE 73; RESP 18; O2SAT 95; BMI 39.1
--- NOTE | 2024-08-20 13:09 | HO.ANESPROP2 ---
Documented by User: Agatha Barahona NP 09/07/24 13:05 HPI - Anesthesia Eval Consult details Narrative: 64yo F for Right Knee Replacement Total, 09/08/23 No recent illness No CP/SOB with activity limited by pain JONH: Unable to tolerate years ago PMFSH Active Problems Active Problems: All Active Problems Osteoarthritis of right knee (Acute) Right knee pain (Acute) Lymphedema (Acute) Varicose veins of right lower extremity with inflammation (Acute) Bilateral knee pain (Acute) Venous insufficiency of both lower extremities (Acute) Lymphedema of both lower extremities (Acute) Neuropathy involving both lower extremities (Acute) Bilateral lower extremity pain (Acute) Bilateral calf pain (Acute) Lumbar radiculopathy (Acute) Nephrolithiasis (Acute) Staghorn calculus (Acute) Primary osteoarthritis of knees, bilateral (Acute) Past Medical History Medical History Anemia Constipation Migraine Numbness Elevated cholesterol Carpal tunnel syndrome Dyslipidemia Elevated liver enzymes Morbid obesity with BMI of 40.0-44.9, adult Primary osteoarthritis of knees, bilateral Arthritis Hx of renal calculi Depression Sleep apnea HTN (hypertension) Family History Family history of problems with anesthesia: No Surgical History Surgical History H/O colonoscopy H/O liposuction of abdomen Hx of cystoscopy Hx of cervical polypectomy History of carpal tunnel release History of Problems with Anesthesia: No Social History Social History Are you a primary resident care manager rn to a significant other at home: No Do you presently have visiting nurse or other home services: No Alcohol intake: never Patient Tobacco Use Status: Never used Tobacco Use of substances other than those prescribed or required for medical reasons: No Advance Directives: No Advance Directives Information Provided: Yes Advance Directives on File: No Recently lost weight without trying: No Eating poorly because of decreased appetite: No Nutrition Risks: No Nutritional Risk Patient : No : No Poor oral hygiene: Yes (crown, partial upper) Meds Allergies Allergy/AdvReac Type Severity Reaction Status Date / Time gabapentin Allergy Rash Verified 09/03/24 09:12 lisinopril Allergy Cough Verified 09/03/24 09:12 Home Medications ?Medication ?Instructions ?Recorded ?Confirmed ?Last Taken ?Type atorvastatin 20 mg tablet 20 mg PO DAILY 06/15/20 09/03/24 09/07/24 History losartan 100 1 tab PO DAILY 05/01/24 09/03/24 09/07/24 History mg-hydrochlorothiazide 12.5 mg tablet naproxen sodium 220 mg capsule 440 mg PO BEDTIME PRN Pain 08/20/24 09/03/24 08/24/24 History (Aleve) sertraline 50 mg tablet 50 mg PO 3XW 08/20/24 09/03/24 09/07/24 History celecoxib 200 mg capsule mg PO BID 09/03/24 09/03/24 08/24/24 History Exam Height,Weight and Vital Signs: Height 5 ft 1 in Weight 93.894 kg Last Vital Signs Pulse 73 08/20/24 12:43 Resp 18 08/20/24 12:43 BP 120/74 08/20/24 12:43 Pulse Ox 95 08/20/24 12:43 O2 Del Method Room Air 08/20/24 12:43 Pertinent Lab Results Pertinent Lab Results: Lab Results 08/20/24 08/25/24 09/03/24 Range/Units 12:05 11:28 10:10 WBC 5.0 (4.8-10.8) X10*3/uL RBC 5.02 (4.20-5.50) X10*6/uL Hgb 13.9 (12.0-16.0) g/dl Hct 42.7 (37.0-47.0) % MCV 85.1 (80.0-98.0) fL MCH 27.7 (27.0-33.0) pg MCHC 32.6 (31.0-35.0) g/dl RDW 12.5 (11.0-16.0) % Plt Count 230 (160-400) X10*3/uL MPV 10.5 (9.4-12.3) fL Absolute Nucleated RBC 0.000 (0.0-0.012) X10*3/uL Nucleated RBC % (auto) 0.0 (0.0-0.2) /100WBC Sodium 140 (135-145) mmol/L Potassium 4.1 (3.3-5.1) mmol/L Chloride 106 (96-108) mmol/L Carbon Dioxide 28 (22-29) mmol/L Anion Gap 10 L (12-20) BUN 16 (9-16) mg/dL Creatinine 0.71 (0.5-1.4) mg/dL Estim Creat Clear Calc 85.9 Estimated GFR > 60 Random Glucose 102 (60-115) mg/dL Calcium 9.3 (8.4-10.2) mg/dL Nasal Screen MRSA (PCR) NEGATIVE (Negative) Nasal S. aureus Screen NEGATIVE (Negative) Nasal MRSA/S.aureus Interp SEE NOTE Blood Type O Positive Antibody Screen NEGATIVE Narrative Narrative: EKG 08/2024 Vent. Rate : 081 BPM Atrial Rate : 081 BPM P-R Int : 144 ms QRS Dur : 082 ms QT Int : 408 ms P-R-T Axes : 053 033 035 degrees QTc Int : 473 ms Normal sinus rhythm Normal ECG No previous ECGs available Airway Mallampati Class: III (small mouth opening) TM Dist: >3cm (short neck) Loose/Missing/Broken Teeth: Yes (molars missing) and No (#8&9 crowned, ) Heart: RRR Lungs: CTAB Assessment and Plan Assessment Anesthesia Assessment: Anesthesia Plan Discussed and PAT Visit Final Anesthetic Review Family History of Problems with Anesthesia: No History of Problems with Anesthesia: No Documented by User: Diann Nicole MD 09/08/24 08:57 [facility] Past Medical History Medical History Anemia Constipation Migraine Numbness Elevated cholesterol Carpal tunnel syndrome Dyslipidemia Elevated liver enzymes Morbid obesity with BMI of 40.0-44.9, adult Primary osteoarthritis of knees, bilateral Arthritis Hx of renal calculi Depression Sleep apnea HTN (hypertension) Surgical History Surgical History H/O colonoscopy H/O liposuction of abdomen Hx of cystoscopy Hx of cervical polypectomy History of carpal tunnel release Social History Social History Are you a primary resident care manager rn to a significant other at home: No Do you presently have visiting nurse or other home services: No Alcohol intake: never Patient Tobacco Use Status: Never used Tobacco Use of substances other than those prescribed or required for medical reasons: No Advance Directives: No Advance Directives Information Provided: Yes Advance Directives on File: No Recently lost weight without trying: No Eating poorly because of decreased appetite: No Nutrition Risks: No Nutritional Risk Patient : No : No Poor oral hygiene: Yes (crown, partial upper) Meds Allergies Allergy/AdvReac Type Severity Reaction Status Date / Time gabapentin Allergy Rash Verified 09/03/24 09:12 lisinopril Allergy Cough Verified 09/03/24 09:12 Home Medications ?Medication ?Instructions ?Recorded ?Confirmed ?Last Taken ?Type atorvastatin 20 mg tablet 20 mg PO DAILY 06/15/20 09/03/24 09/07/24 History losartan 100 1 tab PO DAILY 05/01/24 09/03/24 09/07/24 History mg-hydrochlorothiazide 12.5 mg tablet naproxen sodium 220 mg capsule 440 mg PO BEDTIME PRN Pain 08/20/24 09/03/24 08/24/24 History (Aleve) sertraline 50 mg tablet 50 mg PO 3XW 08/20/24 09/03/24 09/07/24 History celecoxib 200 mg capsule mg PO BID 09/03/24 09/03/24 08/24/24 History Assessment and Plan Final Anesthetic Review NPO: Yes ASA Class: III Final Preanesthetic Review: No Changes in Pt Med Stat, Meds/Allgs Chart Reviewed, Consent Obtained/Reviewed and Anes Risks/Benef Reviewed Patient Risk: Intermediate Procedure Risk: Intermediate Anesthetic Plan Anesthetic Plan: Spinal and Regional Block Disposition: Standard PACU
[2024-08-20 16:34] LABS: MRSA Nasal PCR NEGATIVE (Negative); SA Nasal PCR NEGATIVE (Negative)
[2024-08-25 11:57] LABS: Hematocrit 42.7 % (37.0-47.0); Hemoglobin 13.9 g/dl (12.0-16.0); Mean Corpuscular HGB Conc 32.6 g/dl (31.0-35.0); Mean Corpuscular Hemoglobin 27.7 pg (27.0-33.0); Mean Corpuscular Volume 85.1 fL (80.0-98.0); Mean Platelet Volume 10.5 fL (9.4-12.3); Platelet Count 230 X10*3/uL (160-400); Red Blood Count 5.02 X10*6/uL (4.20-5.50); Red Cell Distribution Width 12.5 % (11.0-16.0)
[2024-08-25 12:39] LABS: Anion Gap 10 (12-20); Blood Urea Nitrogen 16 mg/dL (9-16); Calcium 9.3 mg/dL (8.4-10.2); Carbon Dioxide 28 mmol/L (22-29); Chloride 106 mmol/L (96-108); Creatinine Clr Calc Pharmacy 85.9; Estimated Glomerular Filt Rate > 60; Glucose Random 102 mg/dL (60-115); Potassium 4.1 mmol/L (3.3-5.1); Sodium 140 mmol/L (135-145)
[2024-09-08] VITALS (9 sets, daily range): BP systolic 97–150; BP diastolic 55–80; PULSE 60–87; RESP 16–18; TEMP 36–36.7; O2SAT 94–100; BMI 39.5
--- NOTE | ~2024-09-08 | XR_ITS ---
EXAMINATION: XR KNEE, RIGHT CLINICAL INFORMATION: rt tka COMPARISON: Right knee 09/03/2024 TECHNIQUE: Two views of the right knee. FINDINGS: There is a total right knee arthroplasty with prosthetic components in satisfactory alignment. There are immediate postoperative changes visualized. The soft tissues are normal. XR/XR knee RT 2V IMPRESSION: There is a total right knee arthroplasty with prosthetic components in satisfactory alignment. There are immediate postop changes visualized. Electronically signed by: Chris Mahan MD 09/08/2024 01:12 PM [facility]
--- NOTE | 2024-09-08 07:30 | MHC.SHP ---
Pre-Procedural Eval Section A - 24 Hr Update-Section A only Date of Service: 09/08/24 The patient is an INPATIENT: No Changes since office visit: No Cold of Flu in the past 2 weeks, No New Medical Problems, No Changes in Medication and No Patient answered all questions The patient has been examined within 24 hours of the surgical procedure. The History & Physical has been completed within 30 days and I have reviewed it.: Yes Section B - Complete if H&P > 30 days Chief Complaint: Unilateral primary osteoarthritis, right knee Allergies: Allergies Allergy/AdvReac Type Severity Reaction Status Date / Time gabapentin Allergy Rash Verified 09/03/24 09:12 lisinopril Allergy Cough Verified 09/03/24 09:12 Plan I have reviewed the history and physical and performed a pertinent physical examination on my patient. No changes have occurred unless specified. Time Spent With Patient Time: Total time managing care of this patient today ____ minutes.
[2024-09-08] MEDS: Lactated Ringers 1,000 ML 100 ML IVCONT ×2 (07:53→13:51)
[2024-09-08 08:25] LABS: Hematocrit 39.9 % (37.0-47.0); Hemoglobin 13.1 g/dl (12.0-16.0)
--- NOTE | 2024-09-08 12:11 | W.PM.OPN ---
Operative Note Operative Note Date of Service: 09/08/24 Narrative: Date of Service: 09/08/24 Pre-op diagnosis: Right knee OA Post-op diagnosis: same Procedure: Right TKA Implants: Stout Triathlon press fit cruciate retaining Surgeon: Ar Brown MD Anesthesia: regional and spinal Was an Rn Case Management used for this Procedure?: Yes Rn Case Management: Shania Linder Estimated blood loss (mL): 50 Tourniquet time (min): 55 IV fluids (mL): 1,000 Pathology: other Condition: stable Disposition: PACU Procedure in detail: The patient was brought to the operating room and prepped and draped in standard sterile fashion. A time-out was called to identify proper site proper procedure proper surgeon and IV antibiotics were administered. 1 g of IV tranexamic acid was administered. I began by making a midline incision to the retinaculum and performed a medial parapatellar arthrotomy. The patella was translated laterally and the knee was flexed up.There was medial comaprtment eburnation. I performed a small medial peel and resected the infrapatellar fat pad. [place]'s line was then used to drill my intramedullary femoral guide and my distal femur cut of 10 mm was made in 5 degrees of valgus while protecting the soft tissues. I then measured a #3 femur and placed my cutting guide and made my anterior posterior and chamfer cuts protecting the soft tissues at all times. Once I was satisfied with my cuts I turned my attention to the tibia. I removed the meniscus medially and laterally and , using an external cutting guide, in line with the tibial crest and the third ray, I made my distal tibial cut in 3 deg slope of while protecting the PCL the posterior soft tissues at all times. An extension block was used to confirm appropriate amount of bony resection. I then sized a #3 tibia and once I was satisfied that there was complete tibial coverage I placed my trial and with the trial femur in place took the knee through range of motion. I was satisfied with the extension and flexion as well as the stability and balance at 0, 30 and 90 degrees. I then turned my attention to the patella where I removed 1 cm from the undersurface of the patella and then trialed a 32a patellar button. Again the knee was taken through range of motion I was satisfied with the tracking. I then returned to the femur and drilled my femoral lug holes and prepared the tibia. A femoral bone plug was placed and the knee was irrigated copiously. I then press fit the patella, tibia and femur in standard fashion. I trialed different inserts until I selected a # 9cr insert. The final insert was placed and a irrigation followed by local TXA was performed. A Werewolf cautery wand was used to maintain hemostasis over the capsule and meniscal beds, the gutters and peripatellar soft tissues. The knee was then closed with a running Quill suture, a 3 0 Vicryl and douglas on the skin. Patient was then placed in sterile dressing and brought to recovery room in stable condition there were no known complications.
[2024-09-08 13:51] LABS: Estimated Glomerular Filt Rate > 60
--- NOTE | 2024-09-08 13:59 | PM.IMCN ---
History of Present Illness Data of Consult Service Date: 09/08/24 Primary Care Provider: Mayi Crawford MD [facility] Reason for consult: TKA Right A 64 years old lady with hx of chronic lymphedema, HTN, HLD and neuropathy admitted for elective right TKA. No chest pain, palpitations, SOB, nausea, vomiting, diarrhea or urinary symptoms. surgery went well, pain under fair control. chronic lymphedema with no significant change while inpatient. Review of Systems Review of Systems: Yes all other systems are reviewed and are negative [facility] Medical History Anemia Constipation Migraine Numbness Elevated cholesterol Carpal tunnel syndrome Dyslipidemia Elevated liver enzymes Morbid obesity with BMI of 40.0-44.9, adult Primary osteoarthritis of knees, bilateral Arthritis Hx of renal calculi Depression Sleep apnea HTN (hypertension) Surgical History H/O colonoscopy H/O liposuction of abdomen Hx of cystoscopy Hx of cervical polypectomy History of carpal tunnel release Social History Household Members: Spouse and Children Housing: House Are you a primary director career services to a significant other at home: No Do you presently have visiting nurse or other home services: No Alcohol intake: never Patient Tobacco Use Status: Never used Tobacco Use of substances other than those prescribed or required for medical reasons: No Have you been hit, kicked, punched, or otherwise hurt by someone within the past year? If so, by whom?: No Do you feel safe in your current relationship?: Yes Is there a partner from a previous relationship who is making you feel unsafe now?: No Are you made to feel afraid or neglected: No Advance Directives: No Advance Directives Information Provided: Yes Advance Directives on File: No Recently lost weight without trying: No Eating poorly because of decreased appetite: No Nutrition Risks: No Nutritional Risk Patient : No : No Poor oral hygiene: Yes (crown, partial upper) Meds Allergies Allergy/AdvReac Type Severity Reaction Status Date / Time gabapentin Allergy Rash Verified 09/03/24 09:12 lisinopril Allergy Cough Verified 09/03/24 09:12 Active Medications: Current Medications Acetaminophen (Acetaminophen 325 Mg Tablet) 650 mg PO Q6H PRN PRN Reason: Pain, Mild 1-3,fever,headache Celecoxib (Celecoxib 200 Mg Capsule) 200 mg PO BID [facility] Enoxaparin Sodium (Enoxaparin Sodium 40 Mg/0.4 Ml Syringe) 40 mg SUBCUT Q24H [facility] Hydromorphone HCl (Hydromorphone Hcl 0.5 Mg/0.5 Ml Syringe) 0.25 mg IVPUSH Q4H PRN; Protocol PRN Reason: Pain, Severe (Pain Scale 7-10) Lactated Ringer's (Lr) 1,000 mls @ 100 mls/hr IVCONT .Q10H KALLIE Stop: 09/09/24 08:00 Last Admin: 09/08/24 13:51 Dose: 100 mls/hr Cefazolin Sodium/Dextrose (Ancef) 2 gm in 50 mls @ 100 mls/hr IV POSTOP@1700 ONE Stop: 09/08/24 17:29 Ondansetron HCl (Ondansetron Hcl 4 Mg/2 Ml Vial) 4 mg IVPUSH Q8H PRN PRN Reason: Nausea and Vomiting Oxycodone HCl (Oxycodone Hcl Immed Release 5 Mg Tablet) 5 mg PO Q4H PRN PRN Reason: Pain, Moderate(Pain Scale 4-6) Oxycodone HCl (Oxycodone Hcl Er 10 Mg Tab.Er.12h) 10 mg PO BID [facility] Senna (Sennosides 8.6 Mg Tablet) 17.2 mg PO BEDTIME [facility] Sertraline HCl (Sertraline Hcl 50 Mg Tablet) 50 mg PO 3XW [facility] Sodium Chloride (0.9 % Sodium Chloride Flush 3 Ml Syringe) 3 ml IVFLUSH QSHIFT [facility] Home Medications ?Medication ?Instructions ?Recorded ?Confirmed ?Last Taken ?Type atorvastatin 20 mg tablet 20 mg PO DAILY 06/15/20 09/03/24 09/07/24 History losartan 100 1 tab PO DAILY 05/01/24 09/03/24 09/07/24 History mg-hydrochlorothiazide 12.5 mg tablet naproxen sodium 220 mg capsule 440 mg PO BEDTIME PRN Pain 08/20/24 09/03/24 08/24/24 History (Aleve) sertraline 50 mg tablet 50 mg PO 3XW 0109/03/24 09/07/24 History celecoxib 200 mg capsule 200 mg PO BID PRN Pain 09/03/24 09/03/24 08/24/24 History amitriptyline 25 mg tablet 25 mg PO DAILY 09/08/24 Unknown History Physical Exam Vital Signs and Narrative: Vital Signs: Last Vital Signs Temp 98.0 F 09/08/24 13:15 Pulse 61 09/08/24 13:15 Resp 18 09/08/24 13:15 BP 97/55 L 09/08/24 13:15 Pulse Ox 95 09/08/24 13:15 O2 Del Method Room Air 09/08/24 13:15 O2 Flow Rate 3 09/08/24 12:48 BMI result Body Mass Index 39.5 Const: Other: Constitutional : interactive, not in distress Cardiovascular : no JVP, trace chronic lower extremity edema Respiratory : bilateral chest movement, not in resp distress Gastrointestinal: soft, lax, Non tender Skin : Warm, Dry extremities: Rt knee in dressing Neurological : Alert & oriented , No focal deficit Results Labs 09/08/24 08:08 09/08/24 13:26 Labs: Laboratory Results - last 24 hr 09/08/24 13:26 Estim Creat Clear Calc 91.0 Estimated GFR > 60 Imaging Radiologist's Impressions: Impressions Knee X-Ray 09/08/24 12:08 IMPRESSION: There is a total right knee arthroplasty with prosthetic components in satisfactory alignment. There are immediate postop changes visualized. Electronically signed by: Chris Mhaan MD 09/08/2024 01:[address] [facility] Assessment and Plan (1) Osteoarthritis of right knee: Status: Acute Plan A 64 years old lady for elective right TKA. TKA orthopedic team follow pain management PT eval chronic Lymphedema stable leg elevation apply compresion stocking as tolerated Neuropathy Amitryptilline HLD Statin HTN Hold BP meds Thank you for the consult will follow with you as needed. sign off for now.
--- NOTE | 2024-09-08 14:10 | PM.OP ---
Brief Operative Note Date of Service: 09/08/24 Pre-op diagnosis: Right hip OA Post-op diagnosis: same Procedure: Right PINA Implants: Barbara Trident2 multi hole 52 Accolade2 #[id number] with +2.5/ 36 ceramic Surgeon: Ar Brown MD Anesthesia: GETA and local Was an Dimension Stone Quarry Supervisor used for this Procedure?: No Dimension Stone Quarry Supervisor: Shania Linder Estimated blood loss (mL): 250 IV fluids (mL): 1,000 Pathology: other Condition: stable Disposition: PACU
--- NOTE | 2024-09-08 14:49 | P.DS_ITS ---
DS: Providers Provider Date of Service: 09/10/24 Date of discharge: 09/10/24 Primary care physician: Mayi Crawford MD Consults: 09/08/24 13:15 Consult to Hospitalist Routine Comment: Consulting Provider: [facility] Hospitalists Reason For Exam: medical managmenet DS: Diagnosis Discharge Diagnosis (1) Osteoarthritis of right knee: Status: Acute DS: Summary Hospital Course Hospital Course: The patient underwent a successful right total knee arthroplasty, they were transferred to PACU and then to the floor to recover. During their stay, their vitals were stable, afebrile at 97.4. Labs were unremarkable, H/H 11.7/35.5. POD 1 they were started on Aspirin 325mg po bid for DVT ppx, they also received Physical Therapy services twice a day. Prior to discharge, their dressing was clean dry and intact, and the plan was to be discharged home with VNA services. Time Attestation Discharge Coordination Time (in mins): 30 Quality: Safe Use of Opioids Does Pt have an Active Cancer Diagnosis on the Problem List?: No Quality: Stroke Does the patient have a stroke diagnosis?: No Physical Exam Vital Signs: Vital Signs: Last Vital Signs Temp 98.0 F 09/08/24 13:15 Pulse 61 09/08/24 13:15 Resp 18 09/08/24 13:15 BP 97/55 L 09/08/24 13:15 Pulse Ox 95 09/08/24 13:15 O2 Del Method Room Air 09/08/24 13:15 O2 Flow Rate 3 09/08/24 12:48 BMI result Body Mass Index 39.5 Const: General: cooperative, healthy appearing and no acute distress Resp: Effort & Inspection: normal respiratory effort and able to speak in complete sentences Cardio: Rate: regular rate Peripheral pulses: Peripheral pulses 2+ throughout GI: Palpation (GI): Soft to palpation Skin: Lesions: no lesions Rashes: no rashes Extrem: Other: right knee dressing is c/d/i. Able to dorsi/plantar flex. Calf is supple and nontender. Sensation intact. Pedal pulse intact. DS: Data Data Completed and Pending Pending studies at discharge: Pending at discharge 09/08/24 11:14 Surgical [PTH] Routine Labs on day of discharge: Laboratory Results - last 24 hr 09/08/24 09/08/24 08:08 13:26 Hgb 13.1 Hct 39.9 Creatinine 0.67 Estim Creat Clear Calc 91.0 Estimated GFR > 60 Discharge Plan Discharge Patient Disposition: Home Health Service Referrals: Shania Linder PA-C [Physician Flash Welding Machine Operator] - 09/24/24 9:30 am Discharge Medications: New enoxaparin 40 mg/0.4 mL Syringe 40 mg subcut Q24H 42 Days Qty: 16.8 0RF acetaminophen 325 mg Tablet 650 mg PO Q6H PRN (Reason: Pain, Mild 1-3,Fever,Headache) 30 Days Qty: 240 0RF celecoxib 200 mg Capsule 200 mg PO BID 30 Days Qty: 60 0RF oxycodone 10 mg tablet 10 mg PO Q4H PRN (Reason: Pain, Moderate(Pain Scale 4-6)) 7 Days Qty: 42 0RF Rx Instructions: Partial Fill upon patient request. sennosides [Senna Lax] 8.6 mg Tablet 17.2 mg PO BEDTIME 30 Days Qty: 60 0RF Continued (DME) walker Misc See Rx Instructions .MEDSUPPLY Qty: 1 0RF Rx Instructions: Folding Front wheeled walker duration 99 days amitriptyline 25 mg tablet 25 mg PO BEDTIME atorvastatin 20 mg tablet 20 mg PO DAILY losartan-hydrochlorothiazide 100-12.5 mg tablet 1 tab PO DAILY Discharge Orders: Discharge Order (Routine); Ordered 09/10/24 Ordered By: Isabela Gross Diet: Advance to usual diet Activity on Discharge: Use cane or walker Activity Restrictions/Additional Instructions: Physical Therapy for ROM 0-120, quad strength, gait training. Use walker for ambulation Limit stair climbing, No shower, No tub bath, No driving Continue anticoagulant x 6 weeks Keep Aquacel dressing clean, dry and intact. Follow up with orthopedics in 2 weeks Print Language: Paraguayan
--- NOTE | 2024-09-08 14:50 | P.F2F_ITS ---
Service Date Service Date: 09/08/24 Encounter Date of encounter: 09/09/24 Reasons for Services Signs and symptoms assessed: Pt. is considered homebound due to recent surgery. Unable to drive, poor balance, poor gait mechanics. s/p RTKA. Reason for physical therapy: home safety and mobility, therapeutic exercises, restore joint function, gait/transfer training and ADL training Homebound: Leaving the home is medically contraindicated at this time without the asist of a device and/or another person due th the listed conditions above and below. Reason homebound: unsteady gait / fall risk, leg weakness, pain with ambulation, pain with transfers, poor balance / fall risk and unable to drive Certification: Based on the above findings, I certify that this patient is confined to the home and needs intermittent chcf care, physical therapy and/or speech therapy, or continues to need occupational therapy. The patient is under my care, and I have initiated the establishment of the plan of care. The patient will be followed by a physician who will periodically review the plan of care. Time Spent With Patient Time: Total time managing care of this patient today ____ minutes.
[2024-09-08] MEDS: HYDROmorphone HCl 0.5 MG/0.5 ML SYRINGE 0.25 MG IVPUSH (17:41)
[2024-09-08] MEDS: ceFAZolin Sodium/Dextrose,Iso 2 GM/50 ML PIGGYBACK IV (17:41)
--- NOTE | 2024-09-08 17:54 | PC.NURSE ---
Pt arrived to unit from PACU at 13:15. At this time Admission done by admission nurse and grounds person. Pt is A&Ox4 and cooperative with care. +CMS in right leg, jaqueline wrap in place, CDI. Pt had 1 episode of incontinence due to spinal, pt states she is not normally incontinent of urine at home, pt due to void at 19:15. Pharmacy at bedside at 17:55 to do medication reconciliation with daughter present. All safety measures in place.
--- NOTE | 2024-09-08 18:04 | PHA.MEDREC ---
Pharmacy Consult ? Medication Reconciliation Pharmacy has completed the medication reconciliation. Spoke to patient and daughter at bedside to confirm medication list.
[2024-09-08] MEDS: oxyCODONE HCl Immed Release 5 MG TABLET PO (19:11)
[2024-09-08] MEDS: Sennosides 8.6 MG TABLET 17.2 MG PO (20:10)
[2024-09-08] MEDS: Celecoxib 200 MG CAPSULE PO (20:10)
[2024-09-08] MEDS: oxyCODONE HCl ER 10 MG TAB.ER.12H PO (20:10)
[2024-09-08] MEDS: HYDROmorphone HCl 0.5 MG/0.5 ML SYRINGE IVPUSH (22:14)
[2024-09-08] MEDS: Acetaminophen 1,000 MG/100 ML PIGGYBACK 400 MG IV (22:14)
[2024-09-09] VITALS (11 sets, daily range): BP systolic 125–151; BP diastolic 58–76; PULSE 67–81; RESP 14–20; TEMP 36.2–37.1; O2SAT 93–98
[2024-09-09] MEDS: Lactated Ringers 1,000 ML 100 ML IVCONT (01:48)
[2024-09-09] MEDS: Acetaminophen 1,000 MG/100 ML PIGGYBACK 400 MG IV ×3 (04:45→16:35)
[2024-09-09 05:52] LABS: MANUAL DIFF FLAG NO
[2024-09-09 05:54] LABS: Basophils Percent Auto 0.2 % (0-2); Hematocrit 37.2 % (37.0-47.0); Hemoglobin 12.1 g/dl (12.0-16.0); Imm Gran Abs Auto 0.05 X10*3/uL (0.00-0.03); Imm Gran Pct Auto 0.4 % (0.0-0.4); Lymphocytes Percent Auto 8.2 % (20-40); Mean Corpuscular HGB Conc 32.5 g/dl (31.0-35.0); Mean Corpuscular Hemoglobin 27.6 pg (27.0-33.0); Mean Corpuscular Volume 84.9 fL (80.0-98.0); Mean Platelet Volume 10.8 fL (9.4-12.3); Monocytes Percent Auto 7.6 % (2-11); Neutrophils Absolute Auto 10.5 x10*3/uL (2.0-8.3); Neutrophils Percent Auto 83.6 % (45-73); Platelet Count 193 X10*3/uL (160-400); Red Blood Count 4.38 X10*6/uL (4.20-5.50); Red Cell Distribution Width 12.2 % (11.0-16.0); White Blood Count 12.6 X10*3/uL (4.8-10.8)
[2024-09-09 06:12] LABS: Anion Gap 10 (12-20); Blood Urea Nitrogen 20 mg/dL (9-16); Calcium 8.5 mg/dL (8.4-10.2); Carbon Dioxide 24 mmol/L (22-29); Chloride 108 mmol/L (96-108); Creatinine Clr Calc Pharmacy 98.9; Estimated Glomerular Filt Rate > 60; Glucose Fasting 137 mg/dL (60-99); Potassium 4.6 mmol/L (3.3-5.1); Sodium 137 mmol/L (135-145)
[2024-09-09] MEDS: oxyCODONE HCl Immed Release 5 MG TABLET 10 MG PO ×3 (07:26→21:38)
[2024-09-09] MEDS: oxyCODONE HCl ER 10 MG TAB.ER.12H PO ×2 (07:26→20:33)
[2024-09-09] MEDS: Celecoxib 200 MG CAPSULE PO ×2 (07:26→20:33)
--- NOTE | 2024-09-09 07:34 | PM.PNORT ---
Subjective Subjective Date of Service: 09/09/24 Interval history: POD1 s/p RTKA Patient is resting in bed comfortably Overnight patient reported uncontrolled pain - Med adjustment made Pain is managed No additional complaints Physical Exam Vital Signs: Vital Signs: Last Vital Signs Temp 98.7 F 09/09/24 07:24 Pulse 70 09/09/24 07:24 Resp 14 09/09/24 07:24 BP 151/67 H 09/09/24 07:24 Pulse Ox 93 09/09/24 07:24 O2 Del Method Room Air 09/09/24 07:24 O2 Flow Rate 3 09/08/24 12:48 BMI result Body Mass Index 39.5 Const: General: cooperative, healthy appearing and no acute distress Resp: Effort & Inspection: normal respiratory effort and able to speak in complete sentences Cardio: Rate: regular rate Peripheral pulses: Peripheral pulses 2+ throughout GI: Palpation (GI): Soft to palpation Skin: Lesions: no lesions Rashes: no rashes Extrem: Other: rt knee dressing is c/d/i. Able to dorsi/plantar flex. Calf is supple and nontender. Sensation intact. Pedal pulse intact. Procedures Date of Service Date of Service: 09/09/24 Progress Note: A&P Assessment and plan (1) S/P total knee arthroplasty: Status: Acute Plan Continue pain mgmnt Begin Lovenox for dvt ppx begin PT for RTKA Dispo planning-Pending PT eval, pain mgmnt Time Spent With Patient Time: Total time managing care of this patient today ____ minutes. Quality Stroke Does the patient have a stroke diagnosis?: No VTE Prior VTE?: No VTE Risk Level:: Medical - moderate - high VTE Device Contraindication: N/A - Device Ordered VTE Drug Contraindication: N/A - Med Ordered
--- NOTE | 2024-09-09 08:57 | HO.POSTANES ---
Post Anesthesia Evaluation Post Anesthesia Evaluation Date of Service: 09/09/24 Vital Signs: Vital Signs Temp Pulse Resp BP Pulse Ox O2 Del Method 09/09/24 07:24 98.7 F 70 14 151/67 H 93 Room Air 09/09/24 03:46 97.2 F 81 16 133/59 L 97 Room Air 09/08/24 23:50 97.2 F 87 17 122/67 97 Room Air Anesthesia: General Endotracheal-GETA Mental Status: Awake Pain Control: Satisfactory Nausea/Vomiting: None Hydration: Adequate Anesthesia-Related Issues: No Anes. Related Issues
--- NOTE | 2024-09-09 10:30 | MHC.CM.PN ---
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 PT LIVES WITH FAMILY, INDEPENDENT AT BASELINE. + HCP PCP DR. VILLATORO DP: HOME WITH NEW [facility] FOR HOME P.T. WITH [facility] (FIRST CHOICE). RN WILL DO LOVENOX TEACHING WITH PT PRIOR TO DC. FAMILY WILL TRANSPORT HOME. CM WILL CONTINUE TO FOLLOW FOR ANY CHANGE TO DC NEEDS/PLAN.
[2024-09-09] MEDS: HYDROmorphone HCl 0.5 MG/0.5 ML SYRINGE IVPUSH ×3 (10:37→20:34)
[2024-09-09] MEDS: Enoxaparin Sodium 40 MG/0.4 ML SYRINGE SUBCUT (15:03)
[2024-09-09] MEDS: 0.9 % Sodium Chloride Flush 3 ML SYRINGE IVFLUSH ×2 (15:04→23:44)
[2024-09-09] MEDS: Sennosides 8.6 MG TABLET 17.2 MG PO (20:33)
[2024-09-10] MEDS: oxyCODONE HCl Immed Release 5 MG TABLET 10 MG PO ×2 (03:26→10:45)
[2024-09-10 03:34] VITALS: BP 127/65; PULSE 78; RESP 18; TEMP 36.1; O2SAT 95
[2024-09-10 04:26] VITALS: RESP 16
[2024-09-10 07:00] LABS: MANUAL DIFF FLAG NO
[2024-09-10 07:15] LABS: Anion Gap 10 (12-20); Basophils Percent Auto 0.3 % (0-2); Blood Urea Nitrogen 15 mg/dL (9-16); Calcium 8.2 mg/dL (8.4-10.2); Carbon Dioxide 26 mmol/L (22-29); Chloride 109 mmol/L (96-108); Creatinine Clr Calc Pharmacy 115.8; Eosinophils Percent Auto 0.5 % (0-4); Estimated Glomerular Filt Rate > 60; Glucose Fasting 103 mg/dL (60-99); Hematocrit 35.5 % (37.0-47.0); Hemoglobin 11.7 g/dl (12.0-16.0); Imm Gran Abs Auto 0.03 X10*3/uL (0.00-0.03); Imm Gran Pct Auto 0.4 % (0.0-0.4); Lymphocytes Absolute Auto 1.9 X10*3/uL (1.2-4.9); Lymphocytes Percent Auto 25.7 % (20-40); Mean Corpuscular Hemoglobin 28.1 pg (27.0-33.0); Mean Corpuscular Volume 85.1 fL (80.0-98.0); Mean Platelet Volume 10.4 fL (9.4-12.3); Monocytes Absolute Auto 0.6 X10*3/uL (0.1-1.2); Monocytes Percent Auto 8.3 % (2-11); Neutrophils Absolute Auto 4.8 x10*3/uL (2.0-8.3); Neutrophils Percent Auto 64.8 % (45-73); Platelet Count 146 X10*3/uL (160-400); Potassium 4.1 mmol/L (3.3-5.1); Red Blood Count 4.17 X10*6/uL (4.20-5.50); Red Cell Distribution Width 12.6 % (11.0-16.0); Sodium 141 mmol/L (135-145); White Blood Count 7.4 X10*3/uL (4.8-10.8)
[2024-09-10 08:00] VITALS: BP 114/60; PULSE 87; RESP 16; TEMP 36.3; O2SAT 93
[2024-09-10] MEDS: oxyCODONE HCl ER 10 MG TAB.ER.12H PO (08:58)
[2024-09-10] MEDS: Celecoxib 200 MG CAPSULE PO (08:58)
[2024-09-10] MEDS: 0.9 % Sodium Chloride Flush 3 ML SYRINGE IVFLUSH (09:00)
--- NOTE | 2024-09-10 09:25 | MHC.CM.PN ---
Addendum entered by Laura Lindsay 09/10/24 10:53: HCP/DAUGHTER CORRINE UPDATED ON TODAY'S DC PER REQUEST OF PT Original Note: DP: PT HAS BEEN MEDICALLY CLEARED FOR DC HOME WITH NEW [facility] FOR P[facility]T. SERVICES. [facility] UPDATED. BLS TRANSPORT BOOKED VIA [facility] FOR 10:30 AM.
[2024-09-10 10:36] VITALS: BP 130/60; PULSE 84; RESP 16; TEMP 36; O2SAT 94
[2024-09-10 10:40] VITALS: BP 130/60; PULSE 84; O2SAT 94
== END 2024-09-10 11:36 | disposition home health service (06) ==
LOC: HO.SSS 07:18 → HO.S3 12:35
PROVIDERS: Nurse Practitioner; Physician Assistant; PCP Internal Medicine; Visit Provider Orthopaedic Surgery
PROC: (CPT 27447; principal; 2024-09-08 09:50)
DX: M17.11 Unilateral primary osteoarthritis, right knee (principal); M25.561 Pain in right knee; R26.2 Difficulty in walking, not elsewhere classified; I10 Essential (primary) hypertension; E78.00 Pure hypercholesterolemia, unspecified; D64.9 Anemia, unspecified; R20.0 Anesthesia of skin; G47.30 Sleep apnea, unspecified; R74.8 Abnormal levels of other serum enzymes; E66.01 Morbid (severe) obesity due to excess calories; Z68.36 Body mass index [BMI] 36.0-36.9, adult; F32.A Depression, unspecified; Z79.1 Long term (current) use of non-steroidal anti-inflammatories (NSAID); Z79.899 Other long term (current) drug therapy; Z88.8 Allergy status to other drugs, medicaments and biological substances; Z98.890 Other specified postprocedural states
CPT/HCPCS: 27447; 36415; 73560; 80048; 82565; 85014; 85018; 85025; 85027; 86850; 86900; 86901; 87640; 87641; 88305; 88311; 93005; 97116; 97162; C1776; J0131; J0665; J0690; J1100; J1171; J1650; J2003; J2250; J2371; J2405; J2704; J7120

== ENCOUNTER → 2024-09-08 07:17 | Outpatient (BNV) | payer OTHER, SELFPAY | PROVIDERS: PCP Internal Medicine; Visit Provider Orthopaedic Surgery | DX: Z96.659 Presence of unspecified artificial knee joint (principal) | CPT/HCPCS: 27447; 99024 ==

== ENCOUNTER → 2024-09-08 07:17 | Outpatient (BNV) | payer OTHER, SELFPAY | PROVIDERS: PCP Internal Medicine; Visit Provider Student in an Organized Health Care Education/Training Program | DX: M17.11 Unilateral primary osteoarthritis, right knee (principal) | CPT/HCPCS: 99221 ==

== ENCOUNTER → 2024-09-08 12:08 | Outpatient (BNV) | payer OTHER, SELFPAY | PROVIDERS: PCP Internal Medicine; Visit Provider Radiology Diagnostic Radiology | DX: Z47.1 Aftercare following joint replacement surgery (principal); Z96.651 Presence of right artificial knee joint | CPT/HCPCS: 73560 ==

== ENCOUNTER → 2024-09-24 09:15 | Outpatient (BNVA) | payer OTHER, SELFPAY | PROVIDERS: PCP Internal Medicine; Visit Provider Physician Assistant ==

== ENCOUNTER 2024-10-15 08:19 | Outpatient (AMB) | payer OTHER, SELFPAY ==
--- NOTE | 2024-10-15 08:20 | MHC.OFFVIS ---
Vital Signs 10/15/24 08:26 Height 5 ft 1 in Weight 209 lb BMI 39.5 Intake Visit Reasons: 6WK PO: R TKA w/NE 09/08/24 Intake Note: Sylvia is a 64 year old female who presents today for a post operative follow up 6 weeks s/p Right TKA 09/08/24. Patient reports that she is doing well, she has some continued pain on the medial aspect of the knee. The knee is warm to the touch. she is taking prescribed medication which is helping her pain. She is requesting a refill of Oxycodone. Allergies gabapentin Allergy (Verified 10/15/24 08:21) Rash lisinopril Allergy (Verified 10/15/24 08:21) Cough HPI HPI 6WK PO: R TKA w/NE 09/08/24: Details: Sylvia is a 64 year old female who presents today for a post operative follow up 6 weeks s/p Right TKA 09/08/24. Patient reports that she is doing well, she has some continued pain on the medial aspect of the knee. The knee is warm to the touch. she is taking prescribed medication which is helping her pain. She is requesting a refill of Oxycodone. FORMERLY [facility] Medical History Osteoarthritis of right knee Anemia Constipation Migraine Numbness Elevated cholesterol Carpal tunnel syndrome Dyslipidemia Elevated liver enzymes Morbid obesity with BMI of 40.0-44.9, adult Primary osteoarthritis of knees, bilateral Arthritis Hx of renal calculi Depression Sleep apnea HTN (hypertension) Surgical History H/O colonoscopy H/O liposuction of abdomen Hx of cystoscopy Hx of cervical polypectomy History of carpal tunnel release Social History Household Members: Spouse and Children Housing: House Are you a primary reproductive healthcare assistant to a significant other at home: No Do you presently have visiting nurse or other home services: No Alcohol intake: never Patient Tobacco Use Status: Never used Tobacco service: No Physical Exam Vital Signs: BMI result Body Mass Index 39.5 Extrem Other: inc c/d/i 0-120 stable gait mechanics Assessment & Plan Assessment & Plan (1) Status post total right knee replacement: Code(s): Z96.651 - Presence of right artificial knee joint Category: Surgical Plan: Doign well and returning to nl activity. Last rx for prn oxycodone written today. f/u 6 weeks with PA Coding Level of Care Code Global (64119) Diagnoses Status post total right knee replacement Z96.651
[2024-10-15 08:26] VITALS: BMI 39.5
== END 2024-10-15 08:57 | disposition home or self-care (01) ==
PROVIDERS: PCP Internal Medicine; Visit Provider Orthopaedic Surgery
DX: Z96.651 Presence of right artificial knee joint (principal)
CPT/HCPCS: 99024

== ENCOUNTER 2024-11-20 09:00 | Outpatient (RCR) | payer OTHER, SELFPAY ==
--- NOTE | 2024-09-25 14:10 | MHC.PT.EP ---
[facility] [place] Office [place] Office [place] Office [address] Mariana Dominguez [address] [phone] F: [phone] F: [phone] F: [phone] F: [phone] Physical Therapy Plan of Care Date of Evaluation: 09/25/24 Date of Surgery: 09/08/24 Diagnosis: s/p TKA (DOS:09/08/24) Dr. Brown (RS) Assessment: Sylvia is a pleasant 64 y.o. Azeri speaking female who is referred to PT by Shania Linder PA-C, surgery performed by Dr. Ar Brown MD, with Dx of s/p RIGHT TKA surgery (DOS: 09/08/24). Patient impairments include knee pain, swelling, limited knee ROM, LE weakness and antalgic gait. Patient current functional limitations are stair use, bending, prolonged standing, prolonged sitting, walking. Patient will benefit from skilled PT to address aforementioned impairments and functional limitations to meet established goals. Frequency and Duration: The patient will be seen 2x/ week for 8 weeks Short Term Goals: 4 weeks Patient demonstrates consistency and independence with HEP to self manage symptoms. Patient presents with increased R knee flexion AROM 100 degrees to improve sit to stand from chair with minor use of hands. Dedicated Truck Driver Goals: 8 weeks Patient presents with increased R knee extension 0 degrees to restore normalized gait pattern with LRAD (cane vs RW). Patient presents with increased R knee quad strength 4+/5 to use reciprocal stairs at home (2 flights). Treatment Plan: Modalities to reduce pain, spasms and effusion. Manual therapy to restore motion and function. Therapeutic exercise to improve strength and flexibility. Neuromuscular re-education for posture and balance. Therapeutic activities to return to functional activities of daily living. Electronically signed by: Kilo Keenan, PT, DPT Please sign and return to therapist. Thank you for your referral.
--- NOTE | 2025-01-26 11:56 | MHC.PT.DC ---
[facility] [place] [facility] [place] [facility] [place] [facility] [address] Mariana Dominguez [address] [phone] F: [phone] F: [phone] F: [phone] F: [phone] Physical Therapy Discharge Report Diagnosis: s/p TKA (DOS:09/08/24) Dr. Brown () Date of Surgery: 09/08/24 Date of Evaluation: 09/25/24 Date of Discharge: 01/26/25 Treatments to Date: 17 Cancellations to Date: No Shows to Date: Discharge Status: Achieved Goals Improved Function Independent with HEP Discharge Summary: Sylvia did very well with PT interventions. She was compliant with both attendance and all her PT home exercises, showing improvement in gait, ROM and strength, improving her functional mobility. Her last PT session was on 11/20/24. The assessment reads, Pt continues to maintain needed ROM. Has met STGs and has been progressing well with LTGs. Has final f/u with ortho next week. Anticipate d/c I with HEP. She FUP with ortho 11/23/24and was told to continue with independent HEP. Electronically signed by: Kilo Keenan, PT, DPT Please sign and return to therapist. Thank you for your referral.
== END 2025-01-26 11:56 | disposition home or self-care (01) ==
LOC: HO.PT 09:00
PROVIDERS: PCP Internal Medicine; Visit Provider Physician Assistant
DX: Z47.1 Aftercare following joint replacement surgery (principal); Z96.651 Presence of right artificial knee joint
CPT/HCPCS: 97110; 97140; 97161; 97530

== ENCOUNTER 2024-11-23 08:38 | Outpatient (REF) | payer OTHER, SELFPAY ==
--- NOTE | ~2024-11-23 | XR_ITS ---
EXAMINATION: XR KNEE 3 VIEWS RIGHT HISTORY: M17.11 - Unilateral primary osteoarthritis, right knee COMPARISON: Comparison is made with the prior examination dated 09/08/2024. FINDINGS: Standing AP views of both knees and additional lateral and sunrise patellar views of the right are submitted. The patient is status post total knee arthroplasty. The orthopedic elements are in anatomic alignment. There is no radiographic evidence of loosening. There is no fracture or dislocation. There is a small joint effusion. XR/XR knee RT 3V IMPRESSION: Status post right total knee arthroplasty. Small joint effusion. Electronically signed by: Josep Cervantes MD 11/23/2024 03:44 PM EDT
--- OUTSIDE RECORDS SUMMARY | 2024-11-23 09:12 | XMS_ITS | Clinical Summary ---
Author Organization [address] Address [address] [place] [address] Phone Care Team Providers Care Rotary Engine Assembler Name Role Phone Mayi Crawford MD Primary Care Provider [phone] Social History Tobacco Use Types Packs/Day Years Used Date Smoking Tobacco: Never Assessed Comments Unknown Sex and Gender Information Value Date Recorded Sex Assigned at Not on file Legal Sex Female 1:35 AM EST Gender Identity Not on file Sexual Orientation Not on file Plan of Treatment Health Maintenance Due Date Last Done Comments Breast Cancer Screening 1962 DTaP,Tdap,and Td Vaccines (1 - Tdap) 1981 Pneumococcal Vaccine: 50+ Ye ars (1 of 1 - PCV) 02/23/2012 Zoster Vaccines (1 of 2) 02/23/2012 COVID-19 Vaccine ( - 2023-2 5 season) 2024 Influenza Vaccine (#1) 2024 Colorectal Cancer Screening: Colonoscopy 10/12/2024 Depression Screening 10/12/2024 HIV Screening 10/12/2024 Hepatitis C Screening 10/12/2024 Social Influencers of Health Screening 10/12/2024 Cervical Cancer Screening: HPV 07/23/2029 07/23/2024 RSV Immunization Adult Patie nts (1 - 1-dose 75+ series) 2037 HIB Vaccines Aged Out No longer eligi ble based on patient's age to complete this topic HPV Vaccines Aged Out No longer eligi ble based on patient's age to complete this topic Hepatitis A Vaccines Aged Out No long er eligible based on patient's age to complete this topic Hepatitis B Vaccines Aged Out No long er eligible based on patient's age to complete this topic IPV Vaccines Aged Out No longer eligi ble based on patient's age to complete this topic MMR Vaccines Aged Out No longer eligi ble based on patient's age to complete this topic Meningococcal ACWY Vaccine Aged Out N o longer eligible based on patient's age to complete this topic Meningococcal B Vacine Aged Out No lo nger eligible based on patient's age to complete this topic Pneumococcal Vaccine: Pediat rics (0 to 5 Years) and At-Risk Patients (6 to 64 Years) Aged Out No longer eligi ble based on patient's age to complete this topic RSV Immunization Patients Un eunice 20 months Aged Out No longer eligible b ased on patient's age to complete this topic Varicella Vaccines Aged Out No longer eligible based on patient's age to complete this topic Procedures Procedure Name Priority Date/Time Associated Diagnosis Comments HPV WITH REFLEX GENOTYPE Routine 07/23/2024 12:00 AM EST Encounter for gynecological examination (general) (routine) without abnormal findings from Last 3 Months or Most Recently Relevant to Health Maintenance Results * HPV with reflex genotype (07/23/2024 12:00 AM EST) HPV Negative Negative LAB MICROBIOLOGY METHOD 07/27/2024 1:36 PM EST [facility] Brushing/Spatula Cervix uteri structure / Unknown 07/23/2024 07/24/2024 10:40 AM EST Mayi Crawford MD LAB MOLECULAR DIAGNOSTICS ORD ERABLES Final Result [facility] [address] [place] [address], from Last 3 Months or Most Recently Relevant to Health Maintenance Insurance [facility] Care Teams Rotary Engine Assembler Relationship Specialty Start Date End Date Mayi Crawford MD [address] [place] [address] [place] [address] PCP - General Internal Medicine 09/22/24
--- OUTSIDE RECORDS SUMMARY | 2024-11-23 09:12 | XMS_ITS | Clinical Summary ---
Author Organization [facility] Address [address] [place] [address] [address] [place] [address] Care Team Providers Care Lacquer Shader Name Role Phone Unavailable Primary Care Provider Unavailabl e Allergies No known active allergies Medications No known medications Social History Tobacco Use Types Packs/Day Years Used Date Smoking Tobacco: Never Assessed Comments Unknown Sex and Gender Information Value Date Recorded Sex Assigned at Female 06/18/2022 10:27 AM EDT Legal Sex Female 10:27 AM EDT Gender Identity Female 06/18/2022 10:27 AM EDT Sexual Orientation Straight 06/18/2022 10 :27 AM EDT Plan of Treatment Health Maintenance Due Date Last Done Comments CT Colonography 1962 Colonoscopy 1962 Colorectal Cancer Screening 1962 Depression Screening 1962 FIT DNA/Cologuard 1962 FIT 1962 FOBT 1962 HIV Screening 1962 Lipid Panel 1962 SDOH Screening 1962 Sigmoidoscopy 1962 Alcohol/Substance Use Screening 1974 Tobacco Screening 1974 Hepatitis C Screening 02/23/1980 Hepatitis A Vaccines (1 of 2 - Risk 2-dose series) 1981 Pap Smear 1983 Cervical Cancer Screening 02/23/1992 HPV/Cotest 02/23/1992 Mammogram 2002 Pneumococcal Vaccine: 50+ Years (1 of 1 - PCV) 02/23/2012 Zoster Vaccines (1 of 2) 02/23/2012 Dental Oral Exam 10/17/2016 04/18/2016, 05/26/2015, 09/29/2014 Dental Prophylaxis 11/09/2016 05/11/2016, 11/22/2014 Dental X-Ray: Bitewings 04/19/2017 04/18/20 16, 05/26/2015, 09/29/2014 Dental X-Ray: Full Mouth 09/30/2017 09/29/2014 Hepatitis B Vaccines (1 of 3 - Risk 3-dose series) 2022 RSV Patients and Patients Aged 60 years or older (1 - Risk 60-74 years 1-dose series) 2022 DTaP/Tdap/Td Vaccines (2 - T d or Tdap) 11/25/2023 11/24/2013 COVID-19 Vaccine (1 - 2023-2 5 season) 2024 Influenza Vaccine (#1) 2024 4, 07/02/2012, 06/15/2010 HIB Vaccines Aged Out No longer eligi ble based on patient's age to complete this topic HPV Vaccines Aged Out No longer eligi ble based on patient's age to complete this topic IPV Vaccines Aged Out No longer eligi ble based on patient's age to complete this topic Meningococcal Vaccine Aged Out No christen kurtis eligible based on patient's age to complete this topic Pneumococcal Vaccine: Pediatrics (0 to 5 Years) and At-Risk Patients (6 to 49) Years) Aged Out No longer eligible b ased on patient's age to complete this topic RSV under 20 months Aged Out No longe r eligible based on patient's age to complete this topic Rotavirus Vaccines Aged Out No longer eligible based on patient's age to complete this topic Procedures Procedure Name Priority Date/Time Associated Diagnosis Comments PROPHYLAXIS - ADULT Routine 05/11/2016 1 2:00 AM EDT BITEWINGS - 4 RADIOGRAPHIC IMAGES Routine 04/18/2016 12:00 AM EDT PERIODIC ORAL EVALUATION - ESTABLISHED PATIENT Routine 04/18/2016 12:00 AM EDT INTRAORAL - COMPLETE SERIES OF RADIOGRAPHIC IMAGES Routine 09/29/2014 12:00 AM EST from Last 3 Months or Most Recently Relevant to Health Maintenance
--- OUTSIDE RECORDS SUMMARY | 2024-11-23 09:12 | XMS_ITS | Encounter Summary ---
Author Organization [facility] Address [address] [place] [address] Care Team Providers Care Block Captain Name Role Phone Mayi Crawford MD Primary Care Provider [phone] Encounter Details Date Type Department Care Team (Late st Contact Info) Description 07/24/2024 Lab Requisition [facility] - Main Lab [address] [facility] [place] [address] Mayi Crawford MD [address] [place] [address] [place] [address] Encounter for gynecological examination (general) (routine) without abnormal findings Social History Tobacco Use Types Packs/Day Years Used Date Smoking Tobacco: Never Assessed Comments Unknown Sex and Gender Information Value Date Recorded Sex Assigned at Not on file Legal Sex Female 1:35 AM EST Gender Identity Not on file Sexual Orientation Not on file documented as of this encounter Plan of Treatment Not on file documented as of this encounter Procedures Procedure Name Priority Date/Time Associated Diagnosis Comments HPV WITH REFLEX GENOTYPE Routine 07/23/2024 12:00 AM EST Encounter for gynecological examination (general) (routine) without abnormal findings PAP SMEAR Routine 07/23/2024 12:00 AM EST Encounter for gynecological examination (general) (routine) without abnormal findings documented in this encounter Results * HPV with reflex genotype (07/23/2024 12:00 AM EST) HPV Negative Negative LAB MICROBIOLOGY METHOD 07/27/2024 1:36 PM EST [facility] Brushing/Spatula Cervix uteri structure / Unknown 07/23/2024 07/24/2024 10:40 AM EST Mayi Crawford MD LAB MOLECULAR DIAGNOSTICS ORD ERABLES Final Result Performing Organization Address City/[facility]/ZIP Co de Phone Number [facility] [address] [place] [address], [place] [phone] * Pap smear (07/23/2024 12:00 AM EST) Interpretation Negative for intraepithelial lesion or malignancy 07/29/2024 5:14 PM EST [facility] General Categorization Negative 07/29/2024 5:14 PM EST [facility] Other Findings Atrophy 07/29/2024 5:[address] [facility] Specimen Adequacy Satisfactory for evaluation 07/29/2024 5:[address] [facility] Pap Methodology Liquid Based Pap Test 07/29/2024 5:[address] [facility] Disclaimer The Pap test is a screening test which carries an inherent false negative rate. These test results should be correlated with the patient's clinical findings and history. This Pap test was processed using an automated screening system. Technical cytopathology services provided by [facility], at [address] [place] [address] (CLIA # [id number]/Cricket Zhao MD, Magazine Publisher.) 07/29/2024 5:[address] [facility] Console Pap Interpretation Reported 07/29/2024 5:[address] [facility] Brushing/Spatula Cervix uteri structure / Unknown 07/23/2024 07/24/2024 10:40 AM EST Mayi Crawford MD LAB CYTOLOGY ORDERABLES Final Result Performing Organization Address City/[facility]/ZIP Co de Phone Number [facility] [address] [place] [address], [place] [phone] documented in this encounter Visit Diagnoses Diagnosis Encounter for gynecological examination (general) (routine) without abnormal findings documented in this encounter Care Teams Block Captain Relationship Specialty Start Date End Date Mayi Crawford MD [address] [place] [address] [place] [address] PCP - General Internal Medicine 09/22/24 documented as of this encounter
== END 2024-11-23 08:39 | disposition home or self-care (01) ==
LOC: HO.HOSX 08:38
PROVIDERS: Visit Provider Physician Assistant
DX: Z47.1 Aftercare following joint replacement surgery (principal); Z96.651 Presence of right artificial knee joint
CPT/HCPCS: 73562

== ENCOUNTER 2024-11-23 10:39 | Outpatient (AMB) | payer OTHER, SELFPAY ==
--- NOTE | 2024-11-23 10:54 | MHC.OFFVIS ---
Vital Signs 11/23/24 11:01 Height 5 ft 1 in Weight 209 lb BMI 39.5 Intake Visit Reasons: 6WK PO: R TKA w/NE 09/08/24 Intake Note: Sylvia is a 64 year old female who presents today for a post operative follow up s/p right TKA 09/08/24. Patient was last seen with Dr. Brown and was instructed to follow up in 6 weeks. Patient reports she is doing well, states she has completed PT. States yesterday she bumped her knee when going upstairs however feeling better today. Nursing Professor Required: Yes Nursing Professor Services: Nursing Professor Present Nursing Professor Name: JOSE Ricks/KISHOR Allergies gabapentin Allergy (Verified 11/23/24 11:01) Rash lisinopril Allergy (Verified 11/23/24 11:01) Cough HPI HPI 6WK PO: R TKA w/NE 09/08/24: Details: 64-year-old female returns to the office today 6 weeks status post right total knee arthroplasty on 09/08/[address] Brown. She completed physical therapy and continues to work on her home exercise program. She has mild discomfort but it is not impacting her daily activities. Overall doing well. FOR[facility]LY [facility] Medical History Osteoarthritis of right knee Anemia Constipation Migraine Numbness Elevated cholesterol Carpal tunnel syndrome Dyslipidemia Elevated liver enzymes Morbid obesity with BMI of 40.0-44.9, adult Primary osteoarthritis of knees, bilateral Arthritis Hx of renal calculi Depression Sleep apnea HTN (hypertension) Surgical History H/O colonoscopy H/O liposuction of abdomen Hx of cystoscopy Hx of cervical polypectomy History of carpal tunnel release Social History Household Members: Spouse and Children Housing: House Are you a primary childcare provider to a significant other at home: No Do you presently have visiting nurse or other home services: No Alcohol intake: never Patient Tobacco Use Status: Never used Tobacco service: No Review of Systems Const All systems reviewed & are unremarkable except as noted in HPI and below Physical Exam Vital Signs: BMI result Body Mass Index 39.5 Extrem Other: Right knee incision well healed. No erythema or effusion. She has full range of motion. No ligamentous laxity. Calf supple nontender neurovascularly intact. Results Reviewed Results Reviewed: X-rays of the right knee obtained in the office today and reviewed by me show intact total knee arthroplasty. Assessment & Plan Assessment & Plan (1) Status post total right knee replacement: Code(s): Z96.651 - Presence of right artificial knee joint Category: Surgical Plan: Patient will continue to work on her home exercises to maintain her motion and strength. She was reminded about the need for antibiotics for dental procedures. She will see us back in [address] Brown, sooner if needed. Orders: Orders XR knee RT 3V Today M17.11 - Unilateral primary osteoarthritis, right knee Coding Level of Care Code Global (19664) Diagnoses Status post total right knee replacement Z96.651
[2024-11-23 11:01] VITALS: BMI 39.5
--- OUTSIDE RECORDS SUMMARY | 2024-11-23 12:37 | XMS_ITS | Clinical Summary ---
Author Organization [facility] Address [address] [place] [address] [address] [place] [address] Care Team Providers Care Quality System Manager Name Role Phone Unavailable Primary Care Provider [...]
--- OUTSIDE RECORDS SUMMARY | 2024-11-23 12:37 | XMS_ITS | Clinical Summary ---
Author Organization [address] Address [address] [place] [address] Phone Care Team Providers Care Foreign Collection Clerk Name Role Phone Mayi Crawford MD Primary Care Provider [phone] Social History Tobacco Use Types Packs/Day Years [...] LAB MICROBIOLOGY METHOD 07/27/2024 1:36 PM EST [facility] Brushing/Spatula Cervix uteri structure / Unknown 07/23/2024 07/24/2024 10:40 AM EST Mayi Crawford MD LAB MOLECULAR DIAGNOSTICS ORD ERABLES Final Result [facility] [address] [place] [address], from Last 3 Months or Most Recently Relevant to Health Maintenance Insurance [facility] Care Teams Foreign Collection Clerk Relationship Specialty Start Date End Date Mayi Crawford MD [address] [place] [address] [place] [address] PCP - General Internal Medicine 09/22/24
--- OUTSIDE RECORDS SUMMARY | 2024-11-23 12:37 | XMS_ITS | Encounter Summary ---
Author Organization [facility] Address [address] [place] [address] Care Team Providers Care Hospital Secretary Name Role Phone Mayi Crawford MD Primary Care Provider [phone] Encounter Details Date Type Department Care Team (Late st Contact Info) Description 07/24/2024 Lab Requisition [facility] - Main Lab [address] [facility] [place] [address] Mayi Crawford MD [address] [place] [address] [place] [address] Encounter for gynecological examination (general) (routine) without [...] LAB MICROBIOLOGY METHOD 07/27/2024 1:36 PM EST [facility] Brushing/Spatula Cervix uteri structure / Unknown 07/23/2024 07/24/2024 10:40 AM EST Mayi Crawford MD LAB MOLECULAR DIAGNOSTICS ORD ERABLES Final Result Performing Organization Address City/[facility]/ZIP Co de Phone Number [facility] [address] [place] [address], [place] [phone] * Pap smear (07/23/2024 12:00 AM EST) Interpretation Negative for intraepithelial lesion or malignancy 07/29/2024 5:14 PM EST [facility] General Categorization Negative 07/29/2024 5:14 PM EST [facility] Other Findings Atrophy 07/29/2024 5:[address] [facility] Specimen Adequacy Satisfactory for evaluation 07/29/2024 5:[address] [facility] Pap Methodology Liquid Based Pap Test 07/29/2024 5:[address] [facility] Disclaimer The Pap test is a screening test which carries an inherent false negative rate. These test results should be correlated with the patient's clinical findings and history. This Pap test was processed using an automated screening system. Technical cytopathology services provided by [facility], at [address] [place] [address] (CLIA # [id number]/Cricket Zhao MD, Hospital Fellow.) 07/29/2024 5:[address] [facility] Console Pap Interpretation Reported 07/29/2024 5:[address] [facility] Brushing/Spatula Cervix uteri structure / Unknown 07/23/2024 07/24/2024 10:40 AM EST Mayi Crawford MD LAB CYTOLOGY ORDERABLES Final Result Performing Organization Address City/[facility]/ZIP Co de Phone Number [facility] [address] [place] [address], [place] [phone] documented in this encounter Visit Diagnoses Diagnosis Encounter for gynecological examination (general) (routine) without abnormal findings documented in this encounter Care Teams Hospital Secretary Relationship Specialty Start Date End Date Mayi Crawford MD [address] [place] [address] [place] [address] PCP - General Internal Medicine 09/22/24 documented as of this encounter
== END 2024-11-23 11:22 | disposition home or self-care (01) ==
LOC: HO.HOS 10:40
PROVIDERS: PCP Internal Medicine; Visit Provider Physician Assistant
DX: Z96.651 Presence of right artificial knee joint (principal)
CPT/HCPCS: 99024

== ENCOUNTER → 2024-11-23 10:45 | Outpatient (BNV) | payer OTHER, SELFPAY | PROVIDERS: Visit Provider Radiology Diagnostic Radiology | DX: M25.461 Effusion, right knee (principal); Z96.651 Presence of right artificial knee joint | CPT/HCPCS: 73562 ==

== ENCOUNTER 2025-03-04 13:00 | Outpatient (AMB) | payer OTHER, SELFPAY ==
--- NOTE | 2025-03-04 13:16 | A.OFFVIS_ITS ---
Vital Signs 03/04/25 13:27 Height 5 ft 1 in Weight 209 lb BMI 39.5 Intake Visit Reasons: OV: R TKA w/NE 09/08/24 Intake Note: Sylvia is a 65 year old female who presents today for follow up s/p right TKA 09/08/24. Patient complains of intermittent pain on the anterior aspect of the knee. She explains she cannot go down the stairs the normal way. SHe feels like her knee wont rotate or turn around for her to use the stationary bike. Denies weakness, giving away, or pain. She is taking Tylenol PRN at bed time. Pattern Gater Required: Yes Pattern Gater Language: Supervisor Drying And Winding Name: JOSE Ricks/KISHOR Allergies gabapentin Allergy (Verified 03/04/25 13:18) Rash lisinopril Allergy (Verified 03/04/25 13:18) Cough HPI HPI OV: R TKA w/NE 09/08/24: Details: 65-year-old female who is approximately 6 months status post right total knee arthroplasty with Dr. Brown on 09/08/2024. She states she is doing well however she has occasional discomfort along the lateral portion of the tibia. She denies injury. She is performing all activities without concerns. [facility] Medical History Osteoarthritis of right knee Anemia Constipation Migraine Numbness Elevated cholesterol Carpal tunnel syndrome Dyslipidemia Elevated liver enzymes Morbid obesity with BMI of 40.0-44.9, adult Primary osteoarthritis of knees, bilateral Arthritis Hx of renal calculi Depression Sleep apnea HTN (hypertension) Surgical History H/O colonoscopy H/O liposuction of abdomen Hx of cystoscopy Hx of cervical polypectomy History of carpal tunnel release Social History Household Members: Spouse and Children Housing: House Are you a primary wound care coordinator to a significant other at home: No Do you presently have visiting nurse or other home services: No Alcohol intake: never Patient Tobacco Use Status: Never used Tobacco service: No Review of Systems Const All systems reviewed & are unremarkable except as noted in HPI and below Physical Exam Vital Signs: BMI result Body Mass Index 39.5 Extrem Other: Right knee surgical scar well healed. She has full range of motion without crepitus. She has good quad activation. Calf supple and nontender neurovascularly intact. Assessment & Plan Assessment & Plan (1) Status post total right knee replacement: Code(s): Z96.651 - Presence of right artificial knee joint Category: Surgical Plan: The patient will continue to maintain her motion and strength and continue with activities as tolerated. If there is any concerns she will contact our office. I did remind her if she has any dental visit she needs to have antibiotics. She will see us back for her annual visit in August. Coding Level of Care Code Est Pt Level 3 (44523) Complex EM visit Add On G2211 Diagnoses Status post total right knee replacement Z96.651
[2025-03-04 13:27] VITALS: BMI 39.5
--- OUTSIDE RECORDS SUMMARY | 2025-03-04 13:31 | XMS_ITS | Clinical Summary ---
Author Organization [employer] Address [address] [facility] [address]t [place] [address] Care Team Providers Care Program Management Specialist Name Role Phone Unavailable Primary Care Provider [...] Panel 1960 SDOH Screening 1960 Sigmoidoscopy 1960 Disability Screening 1960 Alcohol/Substance Use Screening 1974 Tobacco Screening [...] 2023-2 5 season) 2024 Influenza Vaccine (#1) 2025 4, 07/02/2012, 06/15/2010 HIB Vaccines Aged Out No longer eligi ble based on patient's age to complete this topic HPV Vaccines Aged Out No longer eligi ble based on patient's age to complete this topic IPV Vaccines Aged Out No longer eligi ble based on patient's age to complete this topic Meningococcal B Vaccine Aged Out No l onger eligible based on patient's age to complete [...]
--- OUTSIDE RECORDS SUMMARY | 2025-03-04 13:31 | XMS_ITS | Clinical Summary ---
Author Organization [address] Address [address] [place] [address] Phone Care Team Providers Care Tipple Greaser Name Role Phone Mayi Crawford MD Primary Care Provider [phone] Social History Tobacco Use Types Packs/Day Years [...] Vaccine ( - 2023-2 5 season) 2024 Colorectal Cancer Screening: Colonoscopy 10/12/2024 Depression Screening 10/12/2024 HIV Screening 10/12/2024 Hepatitis C Screening 10/12/2024 Social Influencers of Health Screening 10/12/2024 Influenza Vaccine (#1) 2025 Cervical Cancer Screening: HPV 07/23/2029 07/23/2024 RSV [...] 5 Years) and At-Risk Patients (6 to 49 Years) Aged Out No longer eligi ble [...] LAB MICROBIOLOGY METHOD 07/27/2024 1:36 PM EST [facility] Brushing/Spatula Cervix uteri structure / Unknown 07/23/2024 07/24/2024 10:40 AM EST Mayi Crawford MD LAB MOLECULAR DIAGNOSTICS ORD ERABLES Final Result [facility] [address] [place] [address], from Last 3 Months or Most Recently Relevant to Health Maintenance Insurance [facility] Care Teams Tipple Greaser Relationship Specialty Start Date End Date Mayi Crawford MD [address] [place] [address] [place] [address] PCP - General Internal Medicine 09/22/24
--- OUTSIDE RECORDS SUMMARY | 2025-03-04 13:31 | XMS_ITS | Patient Health Record ---
Author Organization [facility] Address [address] [place] [address] Care Team Providers Care School Social Worker Name Role Phone Mayi Crawford Primary Care Provider Unavailab Josep Jessica Unavailable [phone] Reason For Referral No Information Encounters Encounter Location Date Provider Diagnosis [facility] [address] [facility] [address] [place] [address] 11/24/2024 Josep Shaffer Plan Of Treatment No Information Insurance Providers Payer Name Payer Address Payer Phone Subscriber Number Group Number Insured Name Patient Relationship to Insured Coverage Start Date Coverage End Date [facility] [address] [place] [phone] [id number] KARON CORREA Self - patient is the insured
== END 2025-03-04 13:39 | disposition home or self-care (01) ==
LOC: HO.HOS 13:01
PROVIDERS: Visit Provider Physician Assistant
DX: Z47.1 Aftercare following joint replacement surgery (principal); Z96.651 Presence of right artificial knee joint
CPT/HCPCS: 99213; G2211

== ENCOUNTER 2025-04-28 08:50 | Outpatient (REF) | payer OTHER, SELFPAY ==
--- OUTSIDE RECORDS SUMMARY | 2024-11-24 10:00 | XMS_ITS ---
Author Organization [facility] Address [address] [place] [address] Care Team Providers Care Drill Operator Pneumatic Name Role Phone Mayi Crawford Primary Care Provider Unavailab Josep Jessica [phone] REASON FOR VISIT Patient presents today for a COLON SCREENING Encounters Encounter Location Date Provider Diagnosis [facility] [address] [place] [address] 11/24/2024 Josep Shaffer Plan Of Treatment No Information Progress Notes * KARON CORREADOB:1960 (65 yo F)Acc No.[id number]:11/24/2024 Progress Notes Patient: KARON ENGEL Provider: Kimmy Shaffer MD :1960 A ge:64 Y S ex:Female Date:11/24/2024 Address:[address] [place], [place] [id number] Pcp:Mayi Crawford Subjective: * Chief Complaints: * 1 . Patient presents today for a COLON SCREENING. * Medical History: Objective: * Vitals: Assessment: Plan: * Treatment: * * The named appointment provid er may or may not be the originator of this progress note, and it is not deemed complete until electronically signed by the appointment provider. Sign off status: Pending * Provider: Kimmy Shaffer MD Date: 0 11/24/2024 Generated for Damaso ocampo/Kamran/Mikhailitting on: 0 04/28/2025 10:20 AM EDT
--- OUTSIDE RECORDS SUMMARY | 2025-04-28 10:20 | XMS_ITS | Patient Health Record ---
Author Organization [facility] Address [address] [place] [address] Care Team Providers Care Pipe Machine Operator Name Role Phone Mayi Crawford Primary Care Provider Unavailab Josep Jessica Unavailable [phone] Reason For Referral No Information Encounters Encounter Location Date Provider Diagnosis [facility] [address] [facility] [address] [place] [address] 11/24/2024 Josep Shaffer Plan Of Treatment No Information Insurance Providers Payer Name Payer Address Payer Phone Subscriber Number Group Number Insured Name Patient Relationship to Insured Coverage Start Date Coverage End Date [facility] [address] [place] [phone] [id number] KARON CORREA Self - patient is the insured
--- OUTSIDE RECORDS SUMMARY | 2025-04-28 10:20 | XMS_ITS | Clinical Summary ---
Author Organization [employer] Address [address] [facility] 7t [place] [address] Care Team Providers Care Scrap Wheeler Name Role Phone Unavailable Primary Care Provider [...] COVID-19 Vaccine (1 - 2023-2 5 season) 2025 Influenza Vaccine (#1) 2025 4, 07/02/2012, 06/15/2010 [...]
--- OUTSIDE RECORDS SUMMARY | 2025-04-28 10:20 | XMS_ITS | Encounter Summary ---
Author Organization [facility] Address [address] [place] [address] Care Team Providers Care Warehouse Receiving Supervisor Name Role Phone Mayi Crawford MD Primary Care Provider [phone] Encounter Details Date Type Department Care Team (Late st Contact Info) Description 07/24/2024 Lab Requisition [facility] - Main Lab [address] [facility] [place] [address] Mayi Crawford MD [address] [place] [address] [place] [address] Encounter for gynecological examination (general) (routine) without [...] LAB MICROBIOLOGY METHOD 07/27/2024 1:36 PM EST [facility] Brushing/Spatula Cervix uteri structure / Unknown 07/23/2024 07/24/2024 10:40 AM EST Mayi Crawford MD LAB MOLECULAR DIAGNOSTICS ORD ERABLES Final Result Performing Organization Address City/[facility]/ZIP Co de Phone Number [facility] [address] [place] [address], [place] [phone] * Pap smear (07/23/2024 12:00 AM EST) Interpretation Negative for intraepithelial lesion or malignancy 07/29/2024 5:14 PM EST [facility] General Categorization Negative 07/29/2024 5:14 PM EST [facility] Other Findings Atrophy 07/29/2024 5:14 PM [facility] Specimen Adequacy Satisfactory for evaluation 07/29/2024 5:14 PM [facility] Pap Methodology Liquid Based Pap Test 07/29/2024 5:14 PM [facility] Disclaimer The Pap test is a screening test which carries an inherent false negative rate. These test results should be correlated with the patient's clinical findings and history. This Pap test was processed using an automated screening system. Technical cytopathology services provided by [facility], at [address] [place] [address] (CLIA # [id number]/Cricket Zhao MD, Sourcing Manager.) 07/29/2024 5:14 PM [facility] Console Pap Interpretation Reported 07/29/2024 5:14 PM [facility] Brushing/Spatula Cervix uteri structure / Unknown 07/23/2024 07/24/2024 10:40 AM EST Mayi Crawford MD LAB CYTOLOGY ORDERABLES Final Result Performing Organization Address City/[facility]/ZIP Co de Phone Number [facility] [address] [place] [address], [place] [phone] documented in this encounter Visit Diagnoses Diagnosis Encounter for gynecological examination (general) (routine) without abnormal findings documented in this encounter Care Teams Warehouse Receiving Supervisor Relationship Specialty Start Date End Date Mayi Crawford MD [address] [place] [address] [place] [address] PCP - General Internal Medicine 09/22/24 documented as of this encounter
--- OUTSIDE RECORDS SUMMARY | 2025-04-28 10:20 | XMS_ITS | Clinical Summary ---
Author Organization [facility] Address [address] [facility] [address] [place] [address] Phone Care Team Providers Care Icu Specialist Name Role Phone Mayi Carwford MD Primary Care Provider Medications oxyCODONE HCl 10 mg Tab Take 10 mg by mouth as needed (pain). every 4 hours as needed for severe pain 5 Active acetaminophen (TYLENOL) 325 mg tablet Take 325 mg by mouth every 6 (six) hours as needed for pain (specific location in comments). 2 tabs every 6 hours as needed for pain and or fever or headache 5 Active senna (SENOKOT) 8.6 mg tablet Take 2 tablets by mouth daily. 5 Active acetaminophen (TYLENOL) 325 mg tablet Take 325 mg by mouth every 6 (six) hours as needed for pain (specific location in comments). every 6 hours, 2 tabs for pain an or fever 5 Active enoxaparin (LOVENOX) 40 mg/0.4 mL Syrg subcutaneous syringe Inject 40 mg under the skin daily. 5 Active amitriptyline (ELAVIL) 25 MG tablet Take 25 mg by mouth nightly at bedtime. 5 Active losartan-hydroCHL OROthiazide (HYZAAR) 100-12.5 mg per tablet Take 1 tablet by mouth daily. 5 Active atorvastatin (LIPITOR) 20 MG tablet Take 20 mg by mouth daily. 5 Active celecoxib (CELEBREX) 200 MG capsule Take 200 mg by mouth 2 (two) times a day. 2 times per day 200mg 5 Active Social History Tobacco Use Types Packs/Day Years Used Date Smoking Tobacco: Never Assessed Home Health Assessment: Transportation Answer Date Recorded Lack of Transportation (Medical) No 09/23/2024 Lack of Transportation (Non-Medical) No 09/23/2024 Patient Unable or Declines to Respond No 09/23/2024 Education Answer Date Recorded Are you interested in more education? Not on ashlee e 08/03/2024 Are you concerned about learning? Not on file 08/03/2024 No 08/03/2024 No 08/03/2024 Digital Access Answer Date Recorded No 08/03/2024 No 08/03/2024 Reliable internet access at home? Not on file 08/03/2024 Device with a working camera? Not on file Comments Unknown Sex and Gender Information Value Date Recorded Sex Assigned at Not on file Legal Sex Female 12:48 PM EST Gender Identity Not on file Sexual Orientation Not on file Last Filed Vital Signs Vital Sign Reading Time Taken Comments Blood Pressure 130/80 09/23/2024 9:09 AM EST Pulse 77 09/23/2024 9:09 AM EST Temperature 36.4 C (97.5 F) 09/23/2024 9:09 AM EST Respiratory Rate 12 09/12/2024 11:09 AM EST Oxygen Saturation 96% 09/23/2024 9:09 AM EST Inhaled Oxygen Concentration - - Weight - - Height - - Body Mass Index - - Plan of Treatment Not on file Medical Devices Not on file Insurance [facility] Address: [address] [address] [facility] Address[facility] [address] [address] Care Teams Icu Specialist Relationship Specialty Start Date End Date Mayi Crawford MD [address] [place] [address] [place] [address] PCP - General Internal Medicine 08/20/24 Additional Source Comments The information contained in this document represents components of the legal health record. It is not the complete legal health record.[facility]
--- OUTSIDE RECORDS SUMMARY | 2025-04-28 10:20 | XMS_ITS | Clinical Summary ---
Author Organization [address] Address [address] [place] [address] Phone Care Team Providers Care Chicken Fancier Name Role Phone Mayi Crawford MD Primary Care Provider [phone] Social History Tobacco Use Types Packs/Day Years [...] 02/23/2012 Zoster Vaccines (1 of 2) 02/23/2012 Depression Screening 08/19/2024 Colorectal Cancer Screening: Colonoscopy 10/12/2024 HIV Screening 10/12/2024 Hepatitis C Screening 10/12/2024 Social Influencers of Health Screening 10/12/2024 COVID-19 Vaccine (1 - 2023-2 5 season) 2025 Influenza Vaccine (#1) 2025 Cervical Cancer Screening: [...] LAB MICROBIOLOGY METHOD 07/27/2024 1:[address] [facility] Brushing/Spatula Cervix uteri structure / Unknown 07/23/2024 07/24/2024 10:40 AM EST us Mayi Crawford MD LAB MOLECULAR DIAGNOSTICS ORD ERABLES Final Result [facility] [address] [place] [address], from Last 3 Months or Most Recently Relevant to Health [place] [address] [facility] Care Teams Chicken Fancier Relationship Specialty Start Date End Date Mayi Crawford MD [address] [place] [address] [place] [address] PCP - General Internal Medicine 09/22/24
== END 2025-04-28 08:51 | disposition home or self-care (01) ==
LOC: HO.MAMMO 08:50
PROVIDERS: PCP Internal Medicine; Visit Provider Internal Medicine
DX: Z12.31 Encounter for screening mammogram for malignant neoplasm of breast (principal)
CPT/HCPCS: 77063; 77067

== ENCOUNTER → 2025-04-28 09:15 | Outpatient (BNV) | payer OTHER, SELFPAY | PROVIDERS: PCP Internal Medicine; Visit Provider Internal Medicine | DX: Z12.31 Encounter for screening mammogram for malignant neoplasm of breast (principal) | CPT/HCPCS: 77063; 77067 ==

== ENCOUNTER 2025-07-20 08:40 | Outpatient (REF) | payer OTHER, SELFPAY ==
--- OUTSIDE RECORDS SUMMARY | 2025-07-20 08:49 | XMS_ITS | Clinical Summary ---
Author Organization [employer] Address [address] [facility] 7t [place] [address] Care Team Providers Care Receiving Barn Custodian Name Role Phone Unavailable Primary Care Provider [...] Years (1 of 1 - PCV) 02/23/2012 RSV Patients and Patients Aged 60 years or older (1 - Risk 50-74 years 1-dose series) 02/23/2012 Zoster Vaccines (1 of 2) 02/23/2012 Dental Oral Exam 10/17/2016 04/18/2016, 05/26/2015, 09/29/2014 Dental Prophylaxis 11/09/2016 05/11/2016, 11/22/2014 Dental X-Ray: Bitewings 04/19/2017 04/18/20 16, 05/26/2015, 09/29/2014 Dental X-Ray: Full Mouth 09/30/2017 09/29/2014 Hepatitis B Vaccines (1 of 3 - Risk 3-dose series) 2022 DTaP/Tdap/Td Vaccines (2 - T d or Tdap) 11/25/2023 11/24/2013 COVID-19 Vaccine (1 - 2024-2 6 season) 2025 Influenza Vaccine (#1) 2025 4, [...]
--- OUTSIDE RECORDS SUMMARY | 2025-07-20 08:49 | XMS_ITS | Clinical Summary ---
Author Organization [address] [facility] Address [address] [place] [address] Phone Care Team Providers Care Principal Ios Developer Name Role Phone Mayi Crawford MD Primary Care Provider Social History Tobacco Use Types Packs/Day Years Used Date Smoking Tobacco: Never Assessed Comments Unknown Sex and Gender Information Value Date Recorded Sex Assigned at Not on file Legal Sex Female 1:35 AM EST Gender Identity Not on file Sexual Orientation Not on file Plan of Treatment Health Maintenance Due Date Last Done Comments Breast Cancer Screening 1960 Colorectal Cancer Screening: Colonoscopy 1960 DTaP,Tdap,and Td Vaccines (1 - Tdap) 1981 Pneumococcal Vaccine: 50+ Ye ars (1 of 1 - PCV) 02/23/2012 Zoster Vaccines (1 of 2) 02/23/2012 Depression Screening 08/19/2024 HIV Screening 10/12/2024 Hepatitis C Screening 10/12/2024 Social Influencers of Health Screening 10/12/2024 COVID-19 Vaccine (1 - 2024-2 6 season) 2025 Influenza Vaccine (#1) 2025 Cervical [...] LAB MICROBIOLOGY METHOD 07/27/2024 1:36 PM EST [facility] Brushing/Spatula Cervix uteri structure / Unknown 07/23/2024 07/24/2024 10:40 AM EST us Mayi Crawford MD LAB MOLECULAR DIAGNOSTICS ORD ERABLES Final Result [facility] [address] [place] [address], from Last 3 Months or Most Recently Relevant to [place] [phone] [facility] Care Teams Principal Ios Developer Relationship Specialty Start Date End Date Mayi Crawford MD [address] [place] [address] [place] [address] PCP - General Internal Medicine 09/22/24
--- OUTSIDE RECORDS SUMMARY | 2025-07-20 08:49 | XMS_ITS | Clinical Summary ---
Author Organization [facility] Address [address] [facility] [address] [place] [address] Phone Care Team Providers Care Campaign Developer Name Role Phone Mayi Crawford MD Primary Care Provider Medications oxyCODONE HCl [...] Devices Not on file Insurance [facility] Address: [address] [address] [facility] Address: [address] [address] Care Teams Campaign Developer Relationship Specialty Start Date End Date Mayi Crawford MD [address] [place] [address] [place] [address] PCP - General Internal Medicine 08/20/24 Additional Source Comments The information contained in this document represents components of the legal health record. It is not the complete legal health record.[facility]
--- OUTSIDE RECORDS SUMMARY | 2025-07-20 08:50 | XMS_ITS | Encounter Summary ---
Author Organization [facility] Address [address] [place] [address] Care Team Providers Care Crystal Calibrator Name Role Phone Mayi Crawford MD Primary Care Provider [phone] Encounter Details Date Type Department Care Team (Late st Contact Info) Description 07/24/2024 Lab Requisition [facility] - Main Lab [address] [facility] [employer] [place] [address] Mayi Crawford MD [address] [place] [address] [place] [address] Encounter for gynecological examination (general) (routine) without [...] MICROBIOLOGY METHOD 07/27/2024 1:36 PM EST [facility] Brushing/Spatula Cervix uteri structure / Unknown 07/23/2024 07/24/2024 10:40 AM EST Mayi Crawford MD LAB MOLECULAR DIAGNOSTICS ORD ERABLES Final Result Performing Organization Address City/[facility]/ZIP Co de Phone Number [facility] [address] [place] [address], [place] [phone] * Pap smear (07/23/2024 12:00 AM EST) Interpretation Negative for intraepithelial lesion or malignancy 07/29/2024 5:14 PM EST [facility] at 1714 EST General Categorization Negative 07/29/2024 5:14 PM EST [facility] Other Findings Atrophy 07/29/2024 5:14 PM [facility] Specimen Adequacy Satisfactory for evaluation 07/29/2024 5:14 PM [facility] Pap Methodology Liquid Based Pap Test 07/29/2024 5:14 PM [facility] Disclaimer The Pap test is a screening test which carries an inherent false negative rate. These test results should be correlated with the patient's clinical findings and history. This Pap test was processed using an automated screening system. Technical cytopathology services provided by [facility], at [address] [place] [address] (CLIA # [id number]/Cricket Zhao MD, Occupational Health And Safety Adviser.) 07/29/2024 5:14 PM [facility] Console Pap Interpretation Reported 07/29/2024 5:14 PM [facility] Brushing/Spatula Cervix uteri structure / Unknown 07/23/2024 07/24/2024 10:40 AM EST Mayi Crawford MD LAB CYTOLOGY ORDERABLES Final Result [facility] [address] [place] [address], [place] [phone] documented in this encounter Visit Diagnoses Diagnosis Encounter for gynecological examination (general) (routine) without abnormal findings documented in this encounter Care Teams Crystal Calibrator Relationship Specialty Start Date End Date Mayi Crawford MD [address] [place] [address] [place] [address] PCP - General Internal Medicine 09/22/24 documented as of this encounter
[2025-07-20 09:03] LABS: MANUAL DIFF FLAG NO
[2025-07-20 09:04] LABS: Hematocrit 41.3 % (37.0-47.0); Hemoglobin 13.1 g/dl (12.0-16.0); Imm Gran Abs Auto 0.03 X10*3/uL (0.00-0.03); Imm Gran Pct Auto 0.3 % (0.0-0.4); Lymphocytes Absolute Auto 2.3 X10*3/uL (1.2-4.9); Mean Corpuscular HGB Conc 31.7 g/dl (31.0-35.0); Mean Corpuscular Hemoglobin 26.5 pg (27.0-33.0); Mean Corpuscular Volume 83.4 fL (80.0-98.0); NRBC Abs Auto 0.000 X10*3/uL (0.0-0.012); NRBC Pct Auto 0.0 /100WBC (0.0-0.2); Platelet Count 236 X10*3/uL (160-400); Red Blood Count 4.95 X10*6/uL (4.20-5.50); White Blood Count 8.7 X10*3/uL (4.8-10.8)
[2025-07-20 09:46] LABS: Alanine Aminotransferase 39 U/L (0-31); Albumin Level 4.6 g/dL (3.5-5.0); Alkaline Phosphatase 88 U/L (39-117); Anion Gap 8 (12-20); Aspartate Amino Transferase 27 U/L (5-31); Blood Urea Nitrogen 22 mg/dL (9-16); Calcium 9.0 mg/dL (8.4-10.2); Carbon Dioxide 28 mmol/L (22-29); Chloride 108 mmol/L (96-108); Cholesterol 175 mg/dL (<200); Estimated Glomerular Filt Rate > 60; HDL Cholesterol 54 mg/dL (>40); Potassium 4.0 mmol/L (3.3-5.1); Sodium 140 mmol/L (135-145); Total Protein 7.1 g/dL (6.5-8.0); Triglycerides 92 mg/dL (<150)
[2025-07-20 10:02] LABS: Thyroid Stimulating Hormone 1.58 uIU/mL (0.32-4.0)
== END 2025-07-20 08:41 | disposition home or self-care (01) ==
LOC: HO.LAB 08:40
PROVIDERS: Visit Provider Internal Medicine
DX: F32.2 Major depressive disorder, single episode, severe without psychotic features (principal); I10 Essential (primary) hypertension; E78.00 Pure hypercholesterolemia, unspecified; K59.00 Constipation, unspecified; Z68.41 Body mass index [BMI] 40.0-44.9, adult
CPT/HCPCS: 36415; 80053; 80061; 84443; 85025